=== PATIENT | male | born 1950 | race Caucasian/White ===

== ENCOUNTER 2022-09-05 16:41 | Inpatient (IN) | payer MEDICARE, SELFPAY ==
[2022-09-05] VITALS (11 sets, daily range): BP systolic 138–183; BP diastolic 62–91; PULSE 86–92; RESP 14–20; TEMP 36.8; O2SAT 94–100
--- NOTE | ~2022-09-05 | US_ITS ---
EXAMINATION:US venous doppler LE BI INDICATION:DVT. TECHNIQUE: Multiple grayscale, color flow and Doppler images of the bilateral lower extremity deep ve nous systems were obtained and reviewed. COMPARISON:No prior studies for comparison. FINDINGS: The common femoral, superficial femoral and popliteal veins demonstrate normal respiratory variation, augmentation and compressibility. Color flow is also seen within the posterior tibial, pe roneal, greater saphenous and profunda veins. There is a complicated partially cystic structure in th e right popliteal fossa, possibly a complicated Zhang's cyst measuring 3.5 cm. IMPRESSION: 1: No lower extremity deep venous thrombosis. Reviewed, dictated and finalized at location A. BUSTER
--- NOTE | ~2022-09-05 | CT_ITS ---
EXAMINATION: CTA chest PE protocol DATE: 09/09/2022 13:37 CLEANING SUPERVISOR INDICATION: Pulmonary embolism. TECHNIQUE: Computed tomographic angiography (CTA) of the chest was performed with 100 mL Omnipaque-35 0 intravenous contrast. The dose-length product was 666.96 mGy-cm. Maximum intensity projection 3D-re constructions of the aorta and other arteries were constructed by the technologist on a separate work station. Automated exposure control and iterative reconstruction technique were employed. COMPARISON: None. FINDINGS: Study is technically adequate without evidence for pulmonary embolism. Small pleural effusi ons. Cardiomegaly. There is dependent atelectasis. No endobronchial lesions. No pneumothorax. No thor acic lymphadenopathy. There is a solid-appearing 1.4 cm soft tissue nodule anterior chest wall, image 91. There is splenomegaly. No other hepatic masses are seen. No pneumothorax. No focal airspace cons olidation. There is severe thoracic and upper lumbar spondylosis. IMPRESSION: 1. No evidence for pulmonary embolism. No focal pneumonia. 2: Small pleural effusions with compressive atelectasis of the lung bases. 3: Solid 1.4 cm soft tissue nodule anterior chest wall. Consider percutaneous biopsy. 4: Splenomegaly. Reviewed, dictated and finalized at location A. NING SUPERVISOR IMPRESSION: 1. No evidence for pulmonary embolism. No focal pneumonia. 2: Small pleural effusions with compressive atelectasis of the lung bases. 3: Solid 1.4 cm soft tissue nodule anterior chest wall. Consider percutaneous b iopsy. 4: Splenomegaly.
--- NOTE | ~2022-09-05 | XR_ITS ---
XR surgery orthopedic DATE: 09/06/2022 18:21 INDICATION: ORIF right subcapital femoral neck fracture TECHNIQUE: 3 spot C-arm images of the right hip 74.5 seconds fluoroscopy time 28.94 mGy COMPARISON: 09/05/2022 right hip 09/05/2022 CT pelvis FINDINGS: There are 3 lag screws extending through the intertrochanteric area into the right femoral head, traversing the right subcapital femoral neck fracture, with no significant displacement or angu lation. IMPRESSION: ORIF right subcapital femoral neck fracture Reviewed, dictated and finalized at Location A. Reviewed, dictated and finalized at location B. CAGE ASSEMBLER
--- NOTE | ~2022-09-05 | XR_ITS ---
EXAM: XR hip RT min 3V w AP pelvis DATE: 09/05/2022 19:10 HISTORY: FALL TODAY. RIGHT LATERAL HIP PAIN . COMPARISON: None available. FINDINGS: Decreased mineralization. Irregular lucencies in the right femoral head/neck junction. Sub tle possible cortical irregularity along the posterior cortex of the right femoral neck in the frog-l eg view and along the anterior cortex of the right femoral neck in the lateral view. No lytic or lew tic lesion. Bilateral hip osteoarthritis. Severe degenerative change in the lower lumbar spine. No er osion or periosteal change. Vascular calcifications. IMPRESSION: Possible subcapital right femoral neck fracture. Consider pelvic CT for further evaluatio n. Reviewed, dictated and finalized at location K. NSE CLERK IMPRESSION: Possible subcapital right femoral neck fracture. Consider pelvic CT for further evaluation.
--- NOTE | ~2022-09-05 | CT_ITS ---
EXAMINATION: CT pelvis wo con DATE: 09/05/2022 20:43 INDICATION: Fall. Possible right subcapital femoral neck fracture. TECHNIQUE: Computed tomography (CT) of the pelvis was performed without intravenous contrast. Automat ed exposure control and iterative reconstruction technique were employed. The dose-length product was 527.97 mGy-cm. COMPARISON: XR hip, same date. FINDINGS: Atherosclerotic calcifications. Normal appendix. Ectopic insertion of the right ureter, whi ch is mildly dilated. Diverticulosis without diverticulitis. Uncomplicated fat-containing bilateral i nguinal hernias, larger on the left. Degenerative change in the lumbar spine. Nondisplaced right subc apital femoral neck fracture. IMPRESSION: Nondisplaced right subcapital femoral neck fracture. Reviewed, dictated and finalized at location K. WARE TEST DEVELOPER
--- NOTE | 2022-09-05 19:47 | ECG_ITS ---
Measurements Intervals [place] Rate: 88 P: 68 NE: 155 QRS: -20 QRSD: 92 T: 56 QT: 354 QTc: 429 Interpretive Statements SINUS RHYTHM DELAYED PRECORDIAL R/S TRANSITION CONSIDER INFERIOR INFARCT, AGE INDETERMINATE ABNORMAL ECG NO PREVIOUS ECG AVAILABLE FOR COMPARISON Electronically Signed On 09-05-2022 22:58:25 [employer] INSTRUCTOR by Gentry Cummings D.O.
--- NOTE | 2022-09-05 20:36 | ED.FALL ---
HPI - Fall General Chief Complaint: Fall Stated Complaint: fall Time Seen by Provider: 09/05/22 19:42 History of Present Illness HPI Narrative: 72-year-old male history of hyperlipidemia, diabetes, GERD and lymphoma presents to the emergency room for evaluation of right hip pain following a fall. Patient states that he was walking around the dark stumbled and fell landing on his right hip. Patient states that he was not ambulatory following the injury. Attempted to ambulate and sit down on the toilet in the bathroom and was unable to due to the pain. Related Data Allergies Allergy/AdvReac Type Severity Reaction Status Date / Time amoxicillin Allergy Unknown Verified 11/25/14 13:41 Penicillins Allergy Unknown Verified 10/23/16 14:05 Review of Systems Review of Systems: CONSTITUTIONAL: Denies fever, chills, or sweats. EYES: Denies visual changes, redness, or discharge. ENT: Denies rhinorrhea, congestion, sore throat, or otalgia. CARDIOVASCULAR: Denies chest pain, palpitations, or edema. RESPIRATORY: Denies cough or dyspnea. GASTROINTESTINAL: Denies abdominal pain, nausea, vomiting, or diarrhea. GENITOURINARY: Denies dysuria or hematuria. SKIN: Denies rash or itching. MUSCULOSKELETAL: Reports right hip pain NEUROLOGIC: Denies headache, numbness, dizziness, or weakness. PSYCHIATRIC: Denies anxiety or depression. [facility] Family History Family History Father Family history of congenital heart disease Sibling Family history of malignant neoplasm of cervix Grandparent Diabetes mellitus Social History Social History Smoking status: Never smoker Alcohol intake: current Exam Narrative: GENERAL: Well-appearing, well-nourished, no physical limitations, and in no acute distress. HEAD: Normocephalic, atraumatic. EYES: Conjunctivae normal, PERRLA and EOMI. CHEST: Clear to auscultation. No respiratory distress. No wheezes rales or rhonchi. HEART: Regular rate and rhythm. No murmur heard. Normal peripheral pulses. EXTREMITIES: RLE: Tenderness over the greater trochanter extending into the upper medial thigh. Shortened and rotated. Distal pulses are present SKIN: Warm, dry, no rash. No noted wounds NEURO: No focal deficits. Alert and oriented x3. MAEW. CN's II-XI intact bilaterally PSYCH: Cooperative. Normal mood and affect. Course Course Emergency Course: 1999: Consulted with MD Lazar. He will consult with the patient Vital Signs Vital signs: Vital Signs Temperature 36.8 C 09/05/22 16:49 Pulse Rate 90 09/05/22 16:49 Respiratory Rate 18 09/05/22 16:49 Blood Pressure 183/91 H 09/05/22 16:49 Pulse Oximetry 97 09/05/22 16:49 Temperature 36.8 C 09/05/22 20:31 Pulse Rate 92 09/05/22 20:31 Respiratory Rate 14 09/05/22 20:31 Blood Pressure 158/75 H 09/05/22 20:31 Pulse Oximetry 95 09/05/22 20:31 MDM - Fall Lab Data Result diagrams: 09/05/22 20:55 09/05/22 20:55 Labs: Lab Results 09/05/22 09/05/22 09/05/22 Range/Units 20:33 20:55 20:55 WBC RBC Hgb Hct MCV MCH MCHC RDW Plt Count MPV Immature Gran % (Auto) Neut % (Auto) Lymph % (Auto) [place] % (Auto) Eos % (Auto) Baso % (Auto) Lymph # (Auto) [place] # (Auto) Eos # (Auto) Baso # (Auto) Abs Immat Gran (auto) Absolute Neuts (auto) Absolute Nucleated RBC Nucleated RBC % PT Pending INR Pending APTT Pending Sodium Pending Potassium Pending Chloride Pending Carbon Dioxide Pending Anion Gap Pending BUN Pending Creatinine Pending Estim Creat Clear Calc Pending Estimated GFR Pending Glucose Pending Calcium Pending Total Bilirubin Pending AST Pending ALT Pending Alkaline P
[2022-09-05 20:41] LABS: Appearance Urine Clear (Clear); Bilirubin Urine Negative (Negative); Blood Urine 1+ (Negative); Color Urine Yellow (Yellow); Glucose Urine UA 3+ mg/dL (Negative); Ketones Urine Trace mg/dL (Negative); Leukocyte Esterase Ur Negative LEU/UL (Negative); Nitrate Urine Negative (Negative); Protein Urine Negative (Negative); Urobilinogen Urine 0.2 mg/dL (<2.0)
[2022-09-05 20:50] LABS: RBC Urine 0-2 /hpf (0-2)
[2022-09-05 20:53] LABS: Add Urine Microscopic? YES
[2022-09-05 21:02] LABS: Basophils Percent Auto 0.1 % (0.2-1.2); Eosinophils Percent Auto 0.6 % (0-4.4); Hematocrit 36.2 % (42.0-52.0); Hemoglobin 12.2 g/dL (14.0-18.0); Immature Granulocyte Absolute 0.02 K/mm3 (0.00-0.031); Immature Granulocyte Percent A 0.3 % (0-0.5); Immature Platelet Fraction Pct 2.2 % (0.9-11.2); Lymphocytes Absolute Auto 0.55 K/mm3 (0.9-3.2); Lymphocytes Percent Auto 8.2 % (18.3-44.2); Mean Corpuscular HGB Conc 33.7 g/dl (32-36); Mean Corpuscular Hemoglobin 34.1 pg (26-34); Mean Corpuscular Volume 101.1 fl (80-100); Mean Platelet Volume 9.5 fl (7.4-10.4); Monocytes Absolute Auto 0.3 K/mm3 (0.1-0.6); Monocytes Percent Auto 4.3 % (2.6-8.5); Neutrophils Absolute Auto 5.8 K/mm3 (1.3-6.7); Neutrophils Percent Auto 86.5 % (45.5-73.1); Platelet Count Result 112 k/mm3 (150-375); Red Blood Count 3.58 M/mm3 (4.6-6.20); Red Cell Distribution Width 14.9 % (11.5-14.5); White Blood Count 6.7 K/mm3 (4.5-10.0)
[2022-09-05 21:12] LABS: Alanine Aminotransferase 46 U/L (6-50); Albumin Level 4.7 g/dL (3.5-5.1); Alkaline Phosphatase 108 U/L (38-126); Anion Gap 11 mmol/L (8-16); Aspartate Amino Transferase 39 U/L (17-59); Bilirubin,Total 0.8 mg/dL (0.2-1.3); Blood Urea Nitrogen 24 mg/dL (9-20); Carbon Dioxide 25 mmol/L (22-30); Chloride 105 mmol/L (98-107); Estimated Glomerular Filt Rate > 60; Glucose 336 mg/dL (65-110); Potassium 4.4 mmol/L (3.4-5.0); Sodium 141 mmol/L (137-145)
[2022-09-05 21:14] LABS: Prothrombin Time 13.2 Seconds (11.1-14.7)
[2022-09-05 21:15] LABS: Partial Thromboplastin Time 22.9 SECONDS (22.3-36.8)
[2022-09-05] MEDS: SODIUM CHLORIDE 0.9% IV 1,000 ML 125 ML IV CONT (21:41)
--- NOTE | 2022-09-05 22:25 | PM.IMHP ---
H&P: HPI History of Present Illness Date/Time: 09/05/22 22:25 Chief Complaint: fall Narrative: this is a 72-year-old male with past medical history significant for type diabetes mellitus, dyslipidemia, GERD, gout. Patient suffered a mechanical fall was able to get back up on his own however had significant pain and difficulty ambulating when the running errands until finally going home when pain was unbearable decided to call EMS and come to the hospital for x-ray . patient denies any loss of consciousness he has been his usual state of health up until this point. In emergency room a urinalysis shows some WBCs present in the urine, hip x-ray was significant for: IMPRESSION: Possible subcapital right femoral neck fracture. Consider pelvic CT for further evaluation. Review of Systems Review of Systems: fall, pain upon weight-bearing on right leg Constitutional: Constitutional: Denies chills, Denies fatigue, Denies fever(s), Denies frequent falls, Denies lethargy, Denies malaise, Denies night sweats and Denies weakness Eyes: Eyes: Denies change in vision ENT: Denies dysphagia, Denies vertigo, Denies dizziness and Denies odynophagia Cardiovascular: Cardiovascular: Denies chest pain, Denies leg edema, Denies lightheadedness, Denies palpitations and Denies dyspnea on exertion Respiratory: Respiratory: Denies chest congestion, Denies cough, Denies excessive phlegm production, Denies pain on inspiration, Denies dyspnea and Denies wheezing Gastrointestinal: Gastrointestinal: Denies abdominal pain, Denies dyspepsia, Denies heartburn, Denies diarrhea, Denies nausea and Denies vomiting Genitourinary: Genitourinary: Denies dysuria Musculoskeletal: Musculoskeletal: Reports limited range of motion ( right hip) Integumentary/Breasts: Skin/Breast: Denies rash Neurologic: Denies vertigo, Denies dizziness, Denies focal weakness and Denies Sensory deficit (Neuro) Psychiatric: Psychiatric: Reports no additional psychiatric complaints and Reports as per HPI Endocrine: Endocrine: Denies cold intolerance, Denies flushing, Denies heat intolerance, Denies polyphagia, Denies polydipsia and Denies palpitations Hematologic/Lymphatic: Hematologic/Lymphatic: Reports no additional hematologic/lymphatic complaints and Reports as per HPI Allergic/Immunologic: Allergic/Immunologic: Reports no additional allergic/immunologic complaints and Reports as per HPI PMFSH Past Medical History Medical History (Updated 09/06/22 @ 08:17 by Eddie Galvin MD) Asthma COPD (chronic obstructive pulmonary disease) DVT (deep venous thrombosis) HTN (hypertension) Hyperlipidemia Lymphoma Obesity Osteoarthritis T2DM (type 2 diabetes mellitus) Family History Family History (Updated 09/06/22 @ 00:30 by Cyndi Junior, RN) Father Family history of congenital heart disease Sibling Family history of malignant neoplasm of cervix Diabetes mellitus Grandparent Diabetes mellitus Social History Social History Smoking packs per day: 1 Smoking cigarettes per day: 20.0 Years smoked: 55 Smoking pack-years: 55.00 Smoking status: Former smoker Tobacco type: cigarettes and e-cigarettes/vaping Alcohol intake: never Substance use type: does not use Lack of Transportation: No Lack of Food: Never True Current Housing: I Have Housing Concerned About Future Housing: No Difficulty Paying Gas/Electric Bills: No Difficulty Paying for Meds: No Currently Unemployed: No Education: High School Diploma/GED Difficulty w/ Childcare or Family Care: No Spiritual care concerns: No Meds Home Medications and Allergies Home Medications Medication Instructions Recorded Confirmed Type allopurinol 100 mg tablet 200 mg PO DAILY 09/06/22 09/06/22 History cholecalciferol (vitamin D3) 1 cap PO DAILY 09/06/22 09/06/22 History cyanocobalamin (vitamin B-12) 1,000 mcg PO DAILY
[2022-09-05 22:34] LABS: SARS-CoV-2 RNA PCR Negative
[2022-09-05] MEDS: ONDANSETRON INJ 4 MG/2 ML VIAL IV PUSH (22:57)
[2022-09-05] MEDS: HYDROmorphone HCL INJ (*CRX) 1 MG/ML SYR 0.5 MG IV PUSH (22:58)
--- NOTE | 2022-09-05 23:35 | ADMGEN ---
This patient, Monty Granados, was admitted to [facility] Surg Room 328-01. Patient/family oriented to hospital policies and general routines including ID bracelet, bed and alarms, visiting hours, pain management, procedures, bathroom and other care routines, personal items, smoking policy, room service/diet, and visiting hours. Information on how to activate the Rapid Response Team has been discussed. Patient/Family are encouraged to report perceived risks to care and to ask questions if they do not understand what they are told or what they should do.
[2022-09-06] VITALS (14 sets, daily range): BP systolic 100–137; BP diastolic 50–81; PULSE 83–129; RESP 10–20; TEMP 36.4–37.6; O2SAT 94–100; BMI 31.4
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
[2022-09-06 07:18] LABS: Hemoglobin A1C 8.1 % (<5.7)
[2022-09-06 07:46] LABS: Vitamin D 25 Hydroxy 39.6 ng/mL
--- NOTE | 2022-09-06 08:10 | WPDANESEPPF ---
Anes - Initial Pre Proc Eval Procedure: Operation Date: 09/06/22 16:30 Proposed Procedures p Cannulated Screw Fixation Right Hip, Possible Bipolar Hemiarthroplasty Right Hip - Matt Lazar MD Date/Time: 09/06/22 08:10 Surgeon: Gómez Rojas MD Pre Op Diagnosis: right hip fracture Patient Data Age: 72 Gender: M Height: 1.7 m Weight: 91 kg Last Vital Signs Temp 37.1 C 09/06/22 05:54 Pulse 83 09/06/22 05:54 Resp 14 09/06/22 05:54 BP 131/60 09/06/22 05:54 Pulse Ox 98 09/06/22 05:54 O2 Del Method Room Air 09/06/22 01:14 Allergies Allergy/AdvReac Type Severity Reaction Status Date / Time amoxicillin Allergy Unknown Loss of Verified 09/06/22 00:51 Consciousness Penicillins Allergy Unknown Other Verified 09/06/22 00:51 Home Medications Medication Instructions Recorded Confirmed Type allopurinol 100 mg tablet 200 mg PO DAILY 09/06/22 09/06/22 History cholecalciferol (vitamin D3) 1 cap PO DAILY 09/06/22 09/06/22 History cyanocobalamin (vitamin B-12) 1,000 mcg PO DAILY 09/06/22 09/06/22 History 1,000 mcg tablet dapagliflozin 10 mg tablet 10 mg PO DAILY 09/06/22 09/06/22 History (Farxiga) folic acid 1 mg tablet 1 mg PO DAILY 09/06/22 09/06/22 History gabapentin 300 mg capsule 1,200 mg PO DAILY 09/06/22 09/06/22 History metformin 500 mg tablet,extended 2,000 mg PO DAILY 09/06/22 09/06/22 History release 24 hr omega-3 fatty acids-vitamin E 2 cap PO BID 09/06/22 09/06/22 History 1,000 mg capsule omeprazole 40 mg capsule,delayed 40 mg PO DAILY 09/06/22 09/06/22 History release rosuvastatin 10 mg tablet 10 mg PO DAILY 09/06/22 09/06/22 History Laboratory Tests 09/05/22 09/05/22 09/05/22 20:33 20:55 20:55 WBC RBC Hgb Hct MCV MCH MCHC RDW Plt Count MPV Immature Gran % (Auto) Neut % (Auto) Lymph % (Auto) [place] % (Auto) Eos % (Auto) Baso % (Auto) Lymph # (Auto) [place] # (Auto) Eos # (Auto) Baso # (Auto) Abs Immat Gran (auto) Absolute Neuts (auto) Absolute Nucleated RBC Nucleated RBC % % Immature Plt Fraction PT 13.2 Seconds Seconds (11.1-14.7) INR 1.0 APTT 22.9 SECONDS SECONDS (22.3-36.8) Sodium 141 mmol/L mmol/L (137-145) Potassium 4.4 mmol/L mmol/L (3.4-5.0) Chloride 105 mmol/L mmol/L (98-107) Carbon Dioxide 25 mmol/L mmol/L (22-30) Anion Gap 11 mmol/L mmol/L (8-16) BUN 24 mg/dL H mg/dL (9-20) Creatinine 0.80 mg/dL mg/dL (0.7-1.3) Estim Creat Clear Calc Not Reportable Estimated GFR > 60 (59 - ) Glucose 336 mg/dL H mg/dL (65-110) Hemoglobin A1c Calcium 9.0 mg/dL mg/dL (8.4-10.2) Total Bilirubin 0.8 mg/dL mg/dL (0.2-1.3) AST 39 U/L U/L (17-59) ALT 46 U/L U/L (6-50) Alkaline Phosphatase 108 U/L U/L (38-126) Total Protein 8.0 g/dL g/dL (6.3-8.2) Albumin 4.7 g/dL g/dL (3.5-5.1) Vitamin D 25-Hydroxy Urine Color Yellow (Yellow) Urine Appearance Clear (Clear) Urine pH 6.0 (5.0-9.0) Ur Specific [place] 1.010 (1.001-1.035) Urine Protein Negative mg/dL mg/dL (Negative) Urine Glucose (UA) 3+ mg/dL H mg/dL (Negative) Urine Ketones Trace mg/dL mg/dL (Negative) Ur Blood (Man) 1+ H (Negative) Urine Nitrate Negative (Negative) Urine Bilirubin Negative (Negative) Urine Urobilinogen 0.2 mg/dL mg/dL (<2.0) Leukocyte Esterase Rfl Negative MAURICE/UL MAURICE/UL (Negative) Ur
[2022-09-06] MEDS: SODIUM CHLORIDE 0.9% IV 1,000 ML 125 ML IV CONT ×2 (08:19→20:04)
[2022-09-06] MEDS: GABAPENTIN 400 MG CAPSULE 1200 MG PO (08:21)
[2022-09-06] MEDS: PANTOPRAZOLE 40 MG TABLET PO ×2 (08:21→20:04)
[2022-09-06] MEDS: allopurinoL 100 MG TABLET 200 MG PO (08:21)
[2022-09-06 08:40] LABS: Basophils Percent Auto 0.2 % (0.2-1.2); Eosinophils Absolute Auto 0.2 K/mm3 (0-0.3); Eosinophils Percent Auto 2.7 % (0-4.4); Hematocrit 34.1 % (42.0-52.0); Hemoglobin 11.5 g/dL (14.0-18.0); Immature Granulocyte Absolute 0.02 K/mm3 (0.00-0.031); Immature Granulocyte Percent A 0.3 % (0-0.5); Immature Platelet Fraction Pct 2.3 % (0.9-11.2); Lymphocytes Absolute Auto 0.76 K/mm3 (0.9-3.2); Lymphocytes Percent Auto 12.9 % (18.3-44.2); Mean Corpuscular HGB Conc 33.7 g/dl (32-36); Mean Corpuscular Hemoglobin 34.7 pg (26-34); Mean Platelet Volume 9.5 fl (7.4-10.4); Monocytes Absolute Auto 0.4 K/mm3 (0.1-0.6); Monocytes Percent Auto 5.9 % (2.6-8.5); Neutrophils Absolute Auto 4.6 K/mm3 (1.3-6.7); Platelet Count Result 104 k/mm3 (150-375); Red Blood Count 3.31 M/mm3 (4.6-6.20); Red Cell Distribution Width 15.3 % (11.5-14.5); White Blood Count 5.9 K/mm3 (4.5-10.0)
[2022-09-06 08:41] LABS: Glucose Point of Care 268 mg/dl (65-105)
[2022-09-06] MEDS: INSULIN ASPART (*BKC) 100 UNITS/ML SUB-Q ×2 (10:05→11:53)
--- NOTE | 2022-09-06 11:20 | PM.IMPN ---
Progress Note: A&P Assessment and Plan (1) Closed hip fracture: Code(s): S72.009A - Fracture of unspecified part of neck of unspecified femur, initial encounter for closed fracture Status: Acute Assessment and Plan: OR planned for this afternoon (2) T2DM (type 2 diabetes mellitus): Code(s): E11.9 - Type 2 diabetes mellitus without complications Status: Acute Assessment and Plan: accuchecks, SSI, monitor BG, a1c is 8.1 (3) UTI (urinary tract infection): Code(s): N39.0 - Urinary tract infection, site not specified Status: Acute Assessment and Plan: urine culture pending, currently off all abx Plan DVT prophylaxis with SCDs GI prophylaxis not indicated Code status full code Subjective Date/time seen: 09/06/22 11:20 Interval history: No overnight events noted. No chest pain or shortness of breath. No nausea, vomiting or diarrhea. No fevers or chills. Pain control rest, worse with movement. Eager to go the OR, very thirsty. Review of Systems Review of Systems: 12 point review of systems was assessed and was negative except as noted in the HPI Exam Narrative: General: No acute distress, alert and oriented per baseline HEENT: Atraumatic, normocephalic, mucous membranes moist CV: Regular rate and rhythm, S1, S2 Lungs: Clear to auscultation bilaterally, no rales or crackles noted, no wheezes, good air entry Abdomen: Soft, nontender, nondistended Extremities: Normal to inspection Skin: No rashes noted, no lesions or wounds seen Psych: Euthymic, normal affect Objective Data Vital Signs Vital Signs: Vital Signs - 24 hr 09/05/22 16:49 09/05/22 19:42 09/05/22 19:45 Temperature 98.3 F Pulse Rate 90 89 88 Respiratory Rate 18 15 Blood Pressure 183/91 H Pulse Oximetry 97 98 Oxygen Delivery 09/05/22 20:00 09/05/22 20:05 09/05/22 20:07 Temperature Pulse Rate 87 90 91 Respiratory Rate 16 18 20 Blood Pressure 145/71 H Pulse Oximetry 98 96 95 Oxygen Delivery 09/05/22 20:15 09/05/22 20:16 09/05/22 20:31 Temperature 98.3 F Pulse Rate 90 91 92 Respiratory Rate 15 16 14 Blood Pressure 156/62 H 158/75 H Pulse Oximetry 94 94 95 Oxygen Delivery 09/05/22 21:30 09/05/22 22:30 09/06/22 01:14 Temperature 98.3 F 98.3 F Pulse Rate 89 86 86 Respiratory Rate 16 16 16 Blood Pressure 142/70 H 138/80 Pulse Oximetry 97 100 100 Oxygen Delivery Room Air 09/06/22 05:54 09/06/22 08:00 Temperature 98.7 F Pulse Rate 83 Respiratory Rate 14 Blood Pressure 131/60 Pulse Oximetry 98 Oxygen Delivery Room Air Intake/Output Intake/Output: Intake & Output 09/03/22 09/04/22 09/05/22 09/06/22 23:59 23:59 23:59 23:59 Intake Total 1500 Output Total 900 Balance 600 Meds/Results Medications: Active Medications Generic Name Dose Route Start Last Admin Trade Name Freq PRN Reason Stop Dose Admin Allopurinol 200 mg 09/06/22 08:00 09/06/22 08:21 Allopurinol 100 Mg Tablet PO 200 mg DAILY@0800 LUZ Administration Fentanyl Citrate 25 mcg 09/06/22 08:08 Fentanyl Citrate Inj (*Crx) 100 Mcg/2 Ml Vial IV PUSH Q2M PRN Pain Gabapentin 1,200 mg 09/06/22 09:00 09/06/22 08:21 Gabapentin 400 Mg Capsule PO 1,200 mg DAILY LUZ Administration Hydromorphone HCl 0.5 mg 09/05/22 21:12 09/05/22 22:58 Hydromorphone Hcl Inj (*Crx) 1 Mg/Ml Syr IV PUSH 0.5 mg Q4H PRN Administration Pain Rated 7-10 Sodium Chloride 1,000 mls @ 125 mls/hr 09/05/22 21:15 09/06/22 08:19 Normal Saline Iv IV CONT 125 mls/hr .Q8H LUZ Administration Lactated Ringer's 1,000 mls @ 30 mls/hr 09/06/22 08:10 Lr - Lactated Ringers Iv IV CONT .Q24H LUZ Lactated Ringer's 1,000 mls @ 30 mls/hr 09/06/22 08:10 Lr - Lactated Ringers Iv IV CONT .Q24H LUZ Insulin Aspart 5 units 09/06/22 08:00 09/06/22 10:05 Insulin Aspart (*Bkc) 100 Units/Ml 0.05 units/kg (5 units
[2022-09-06 11:50] LABS: Glucose Point of Care 244 mg/dl (65-105)
--- NOTE | 2022-09-06 15:37 | WPDANESEPPF ---
Anes - Initial Pre Proc Eval Procedure: Operation Date: 09/06/22 16:30 Proposed Procedures p Cannulated Screw Fixation Right Hip, Possible Bipolar Hemiarthroplasty Right Hip - Matt Lazar MD Date/Time: 09/06/22 15:37 Surgeon: Gómez Rojas MD Pre Op Diagnosis: right hip fracture Patient Data Age: 72 Gender: M Height: 1.7 m Weight: 91 kg Last Vital Signs Temp 36.6 C 09/06/22 14:00 Pulse 119 H 09/06/22 14:00 Resp 20 09/06/22 14:00 BP 103/81 09/06/22 14:00 Pulse Ox 96 09/06/22 14:00 O2 Del Method Room Air 09/06/22 08:00 Allergies Allergy/AdvReac Type Severity Reaction Status Date / Time amoxicillin Allergy Unknown Loss of Verified 09/06/22 00:51 Consciousness Penicillins Allergy Unknown Other Verified 09/06/22 00:51 Home Medications Medication Instructions Recorded Confirmed Type allopurinol 100 mg tablet 200 mg PO DAILY 09/06/22 09/06/22 History cholecalciferol (vitamin D3) 1 cap PO DAILY 09/06/22 09/06/22 History cyanocobalamin (vitamin B-12) 1,000 mcg PO DAILY 09/06/22 09/06/22 History 1,000 mcg tablet dapagliflozin 10 mg tablet 10 mg PO DAILY 09/06/22 09/06/22 History (Farxiga) folic acid 1 mg tablet 1 mg PO DAILY 09/06/22 09/06/22 History gabapentin 300 mg capsule 1,200 mg PO DAILY 09/06/22 09/06/22 History metformin 500 mg tablet,extended 2,000 mg PO DAILY 09/06/22 09/06/22 History release 24 hr omega-3 fatty acids-vitamin E 2 cap PO BID 09/06/22 09/06/22 History 1,000 mg capsule omeprazole 40 mg capsule,delayed 40 mg PO DAILY 09/06/22 09/06/22 History release rosuvastatin 10 mg tablet 10 mg PO DAILY 09/06/22 09/06/22 History Laboratory Tests 09/05/22 09/05/22 09/05/22 20:33 20:55 20:55 WBC RBC Hgb Hct MCV MCH MCHC RDW Plt Count MPV Immature Gran % (Auto) Neut % (Auto) Lymph % (Auto) [place] % (Auto) Eos % (Auto) Baso % (Auto) Lymph # (Auto) [place] # (Auto) Eos # (Auto) Baso # (Auto) Abs Immat Gran (auto) Absolute Neuts (auto) Absolute Nucleated RBC Nucleated RBC % % Immature Plt Fraction PT 13.2 Seconds Seconds (11.1-14.7) INR 1.0 APTT 22.9 SECONDS SECONDS (22.3-36.8) Sodium 141 mmol/L mmol/L (137-145) Potassium 4.4 mmol/L mmol/L (3.4-5.0) Chloride 105 mmol/L mmol/L (98-107) Carbon Dioxide 25 mmol/L mmol/L (22-30) Anion Gap 11 mmol/L mmol/L (8-16) BUN 24 mg/dL H mg/dL (9-20) Creatinine 0.80 mg/dL mg/dL (0.7-1.3) Estim Creat Clear Calc Not Reportable Estimated GFR > 60 (59 - ) Glucose 336 mg/dL H mg/dL (65-110) POC Capillary Glucose Hemoglobin A1c Calcium 9.0 mg/dL mg/dL (8.4-10.2) Total Bilirubin 0.8 mg/dL mg/dL (0.2-1.3) AST 39 U/L U/L (17-59) ALT 46 U/L U/L (6-50) Alkaline Phosphatase 108 U/L U/L (38-126) Total Protein 8.0 g/dL g/dL (6.3-8.2) Albumin 4.7 g/dL g/dL (3.5-5.1) Vitamin D 25-Hydroxy Urine Color Yellow (Yellow) Urine Appearance Clear (Clear) Urine pH 6.0 (5.0-9.0) Ur Specific [place] 1.010 (1.001-1.035) Urine Protein Negative mg/dL mg/dL (Negative) Urine Glucose (UA) 3+ mg/dL H mg/dL (Negative) Urine Ketones Trace mg/dL mg/dL (Negative) Ur Blood (Man) 1+ H (Negative) Urine Nitrate Negative (Negative) Urine Bilirubin Negative (Negative) Urine Urobilinogen 0.2 mg/dL mg/dL (<2.0) Leukocyte Esterase Rfl Negative LE
[2022-09-06] MEDS: LACTATED RINGERS 1,000 ML 30 ML IV CONT ×2 (15:50→18:28)
[2022-09-06 16:06] LABS: Glucose Point of Care 197 mg/dl (65-105)
--- NOTE | 2022-09-06 16:18 | WPDHPUPDATE1 ---
History and Physical Update Update Date/Time: 09/06/22 16:18 History and Physical has been reviewed, including an updated exam of the patient. There are NO changes in the patient's condition. Risks, benefits, and alternatives have been discussed and questions answered. Patient agrees to proceed with procedure.
[2022-09-06] MEDS: ceFAZolin 2 GM/D5W 50 ML 2 GM/50 ML BAG IVPB (16:50)
[2022-09-06] MEDS: BUPIVACAINE HCL 0.5% PF 30 ML VIAL INFILTRATE (17:32)
[2022-09-06] MEDS: ceFAZolin SODIUM 1 GM VIAL IRRIGATION (17:57)
--- NOTE | 2022-09-06 18:17 | SUR.OPER ---
150mL clear yellow urine drained from stephenson at the end of the case
--- NOTE | 2022-09-06 18:38 | P.OP_ITS ---
Procedure Note - Detailed Date of Procedure 09/06/22 Pre-op Diagnosis right subcapital femoral neck fracture minimally impacted Post-op Diagnosis Same Procedure Performed Screw fixation insight 2 right subcapital femoral neck fracture Surgeon Matt Lazar MD Senior Validation Engineer Tyrese Anesthesia General Description of Procedure Patient was brought to the operating room and general anesthesia was administered. The right hip was scrubbed with the chlorhexidine cloth. He received 2 g of Ancef weight based vancomycin preoperatively. The right foot was padded placed in the traction boot the left hip placed on the leg sun with the hip flexed and abducted out of the way. Right hip was prepped and draped usual fashion with a shower curtain. Using fluoro we located the position of the incision made 1/2 inch longitudinal incision through the skin and the skin and subQ were injected with 0.5% Marcaine 7 cc for postoperative analgesia. Guidewires for the Biomet cannulated screw set were placed 1 inferiorly closed the inferior femoral neck 1 posteriorly close the posterior femoral neck and 1 anterior superiorly. When it came time to drill for the cannulated screws we realized that the Biomet set did not have cannulated drill inside and there were none to be had. Fortunately we had the Synthes 7.3 cannulated system. This uses a 5.0 cannulated drill set of a 4.8 like a Biomet but fit snugly over the guidewire which was the same size as the guidewire from the Synthes set. We drilled the lateral cortex with 3 screws and we placed the 3 screws 7.3 mm 16 mm threaded Synthes cannulated screws without difficulty the inferior screw a 90 the anterior superior a 85 and the posterior superior an 80 and the screws were brought to about 5 or 6 mm of subchondral bone in each obtained very good purchase. Anatomic alignment of the fracture was maintained with minimal valgus impaction the same as on the imaging from last night there is no change under fluoro. The wound was irrigated with antibiotic solution. The skin was closed with 2-0 subcutaneous Vicryl and glue. We did not incise the fascia but drilled through the fascia for screw placement. There were no complications he tolerated the procedure well was transferred postop recovery room stable condition. Implants Synthes 7.3 mm cannulated screws. Estimated Blood Loss -50.0 Urine Output 900 Condition Stable Disposition PACU
[2022-09-06] MEDS: ACETAMINOPHEN 500 MG TABLET 1000 MG PO (20:03)
[2022-09-06] MEDS: oxyCODONE HCL (*CRX) 5 MG TAB IR PO (20:04)
[2022-09-06 21:45] LABS: Glucose Point of Care 254 mg/dl (65-105)
[2022-09-07] VITALS (11 sets, daily range): BP systolic 101–123; BP diastolic 47–63; PULSE 76–100; RESP 16–20; TEMP 36.1–37.2; O2SAT 92–100
--- NOTE | 2022-09-07 | ECHO_ITS ---
Patient Info Name: Monty Granados Age: 72 years : 1950 Gender: Male Ht: 67 in Wt: 200 lbs BSA: 2.10 m2 HR: 93 bpm BP: 123 / 59 mmHg Heart Rhythm: Sinus Rhythm Technical Quality: Poor Exam Date: 09/07/2022 1:32 PM Exam Location: [facility] Exam Room: [facility] Patient Status: Inpatient Admit Date: 09/05/2022 Staff Ordering Physician: Isidoro Bauer MD Concrete Boom Operator: Angelita Barrett RCS Attending Provider: Gómez Rojas MD Referring Physician: Juancarlos ELKINS; Exam Type: CA echo dop color flow w con Study Info Indications - ATRIAL FIBRLLIATION S/P OP Complete two-dimensional, color flow and Doppler transthoracic echocardiogram is performed with contrast to opacify the left ventricle and to improve the deliniation of the left ventricle endocardial borders. Contrast/Agitated Saline Contrast/Ag. Saline: Definity Amount: 2.00 ml Administered By: Angelita Barrett Existing IV Access: Yes IV Access Condition: patent with no signs of infiltration Reason for Poor Study: patient body habitus Summary 1. Left ventricular systolic function is normal, estimated at 60-65%. 2. Right ventricular systolic function is normal. 3. There is mild aortic valve calcification. 4. There is mild tricuspid valve regurgitation. Left Ventricle Left ventricular chamber dimension is normal. Left ventricular systolic function is normal, estimated at 60-65%. There is no increased left ventricular wall thickness. Right Ventricle Right ventricular chamber dimension is normal. Right ventricular systolic function is normal. Left Atria Left atrial chamber dimension is normal. Right Atria Right atrial chamber dimension is normal. Atrial Septum Intact interatrial septum visualized by color flow imaging. Aortic Valve The aortic valve is not well visualized. There is no aortic valve stenosis. There is no aortic valve regurgitation. There is mild aortic valve calcification. Pulmonic Valve The pulmonic valve is not well visualized. Mitral Valve The mitral valve has normal leaflets. There is no mitral valve stenosis. There is no mitral valve regurgitation. Tricuspid Valve There is mild tricuspid valve regurgitation. Pericardium/Pleural There is trivial pericardial effusion. Inferior Vena Cava Dilated inferior vena cava with >50% collapse upon inspiration consistent with elevated right atrial pressure. Aorta The aortic root size at the sinus of Valsalva is not well visualized. Left Ventricular Outflow Tract Name Value Normal LVOT 2D LVOT Diameter 2.09 cm LVOT Doppler LVOT Peak Gradient 0 mmHg LVOT Mean Gradient 3 mmHg LVOT VTI 25.22 cm LVOT VTI/AV VTI Ratio 0.88 LVOT Stroke Volume 86.22 ml LVOT CO 17.43 l/min LVOT CI 8.30 L/min/m2 Pulmonic Valve
--- NOTE | 2022-09-07 00:28 | ECG_ITS ---
Measurements Intervals [place] Rate: 132 P: IN: 0 QRS: -56 QRSD: 96 T: 53 QT: 307 QTc: 455 Interpretive Statements ATRIAL FIBRILLATION WITH RAPID VENTRICULAR RESPONSE PATTERN CONSISTENT WITH PULMONARY DISEASE LEFT ANTERIOR FASCICULAR BLOCK [QRS AXIS <= -45, QR IN I, RS IN II] Abnormal ECG COMPARED TO ECG 09/05/2022 19:52:30 ATRIAL FIBRILLATION NOW PRESENT LEFT ANTERIOR FASCICULAR BLOCK NOW PRESENT Electronically Signed On 09-07-2022 11:16:33 AUTO SERVICER by Isidoro Bauer M.D.
[2022-09-07] MEDS: dilTIAZem HCL 30 MG TABLET PO (02:39)
[2022-09-07 06:34] LABS: Basophils Percent Auto 0.4 % (0.2-1.2); Eosinophils Absolute Auto 0.1 K/mm3 (0-0.3); Hemoglobin 9.9 g/dL (14.0-18.0); Immature Granulocyte Absolute 0.02 K/mm3 (0.00-0.031); Immature Granulocyte Percent A 0.4 % (0-0.5); Immature Platelet Fraction Pct 2.6 % (0.9-11.2); Lymphocytes Percent Auto 14.3 % (18.3-44.2); Mean Corpuscular Hemoglobin 33.4 pg (26-34); Mean Corpuscular Volume 101.4 fl (80-100); Mean Platelet Volume 9.7 fl (7.4-10.4); Monocytes Absolute Auto 0.3 K/mm3 (0.1-0.6); Monocytes Percent Auto 5.2 % (2.6-8.5); Neutrophils Absolute Auto 4.4 K/mm3 (1.3-6.7); Neutrophils Percent Auto 77.7 % (45.5-73.1); Platelet Count Result 92 k/mm3 (150-375); Red Blood Count 2.96 M/mm3 (4.6-6.20); Red Cell Distribution Width 15.2 % (11.5-14.5); White Blood Count 5.6 K/mm3 (4.5-10.0)
[2022-09-07 06:46] LABS: Anion Gap 5 mmol/L (8-16); Blood Urea Nitrogen 22 mg/dL (9-20); Calcium 7.6 mg/dL (8.4-10.2); Carbon Dioxide 24 mmol/L (22-30); Chloride 105 mmol/L (98-107); Estimated CRCL calculation 70 ml/min; Estimated Glomerular Filt Rate > 60; Glucose 349 mg/dL (65-110); Potassium 4.6 mmol/L (3.4-5.0); Sodium 134 mmol/L (137-145)
--- NOTE | 2022-09-07 07:41 | PM.PNORT ---
Subjective Subjective Date/Time Seen: 09/07/22 07:41 Postop day 1 patient is alert. Vital signs are stable. Morning labs are noted. Dressing is dry. therapy will work with the patient today on transfers. We are not going to have the patient ambulate given his neuropathy in his feet and his overall significant deconditioning. Pain is controlled. Objective Data Vital Signs Vital Signs: Vital Signs - 24 hr 09/06/22 08:00 09/06/22 14:00 09/06/22 15:29 Temperature 36.6 C 37.6 C H Pulse Rate 119 H 129 H Respiratory Rate 20 14 Blood Pressure 103/81 119/50 L Pulse Oximetry 96 94 Oxygen Delivery Room Air Room Air Oxygen Flow Rate 09/06/22 18:28 09/06/22 18:40 09/06/22 18:55 Temperature 36.7 C Pulse Rate 123 H 118 H 114 H Respiratory Rate 10 L 15 12 Blood Pressure 112/68 103/62 100/51 L Pulse Oximetry 100 100 100 Oxygen Delivery Simple Face Mask Simple Face Mask Room Air Oxygen Flow Rate 6 6 09/06/22 19:10 09/06/22 19:25 09/06/22 20:22 Temperature 36.6 C Pulse Rate 108 H 120 H 111 H Respiratory Rate 12 12 18 Blood Pressure 119/71 119/71 137/58 L Pulse Oximetry 96 97 100 Oxygen Delivery Nasal Cannula Nasal Cannula Oxygen Flow Rate 2 2 09/06/22 21:22 09/06/22 21:05 09/06/22 22:21 Temperature 36.4 C 36.4 C 36.5 C Pulse Rate 84 88 86 Respiratory Rate 20 20 20 Blood Pressure 131/63 107/68 122/67 Pulse Oximetry 100 98 98 Oxygen Delivery Oxygen Flow Rate 09/06/22 20:00 09/07/22 01:22 09/07/22 05:22 Temperature 36.7 C 36.4 C L Pulse Rate 86 87 81 Respiratory Rate 20 20 20 Blood Pressure 101/47 L 114/63 Pulse Oximetry 98 99 99 Oxygen Delivery Nasal Cannula Oxygen Flow Rate 2 09/07/22 06:41 Temperature Pulse Rate 76 Respiratory Rate Blood Pressure Pulse Oximetry Oxygen Delivery Oxygen Flow Rate Intake/Output Intake/Output: Intake & Output 09/04/22 09/05/22 09/06/22 09/07/22 23:59 23:59 23:59 23:59 Intake Total 2150 600 Output Total 1920 Balance 230 600 Meds/Results Medications: Active Medications Generic Name Dose Route Start Last Admin Trade Name Pericoq PRN Reason Stop Dose Admin Acetaminophen 1,000 mg 09/06/22 20:00 09/07/22 02:44 Acetaminophen 500 Mg Tablet PO Not Given Q6H LUZ Allopurinol 200 mg 09/06/22 08:00 09/06/22 08:21 Allopurinol 100 Mg Tablet PO 200 mg DAILY@0800 LUZ Administration Apixaban 2.5 mg 09/07/22 09:00 Apixaban 2.5 Mg Tablet PO Q12HR LUZ Cyanocobalamin 1,000 mcg 09/07/22 09:00 Cyanocobalamin 1,000 Mcg Tablet PO DAILY LUZ Folic Acid 1 mg 09/07/22 09:00 Folic Acid 1 Mg Tablet PO DAILY LUZ Gabapentin 1,200 mg 09/06/22 09:00 09/06/22 08:21 Gabapentin 400 Mg Capsule PO 1,200 mg DAILY LUZ Administration Cefazolin Sodium 1 gm in 50 mls @ 100 mls/hr 09/07/22 02:00 09/07/22 03:10 Ancef 1 Gm/D5w 50 Ml Pm IVPB 09/07/22 18:29 Infused Q8H LUZ Infusion Vancomycin HCl 1,000 mg in 250 mls @ 250 mls/hr 09/07/22 03:00 09/07/22 04:35 Vancomycin 1,000 Mg/D5w 250 Ml IVPB 09/07/22 15:59 Infused Q12H LUZ Infusion Sodium Chloride 1,000 mls @ 125 mls/hr 09/06/22 19:37 09/06/22 20:04 Normal Saline Iv IV CONT 125 mls/hr .Q8H LUZ Administration Insulin Aspart 5 units 09/06/22 08:00 09/07/22 01:17 Insulin Aspart (*Bkc) 100 Units/Ml 0.05 units/kg (5 units) Not Given SUB-Q TIDWM [facility] Miscellaneous Information 1 each 09/06/22 00:01 (Cholecalciferol (Vitamin D3) 1 Cap)Needs Strength XX 10/06/22 00:00 CL[facility]IFY [facility] Miscellaneous Information 1 each 09/06/22 00:01 Nonformulary Drug (Dapagliflozin [Farxiga] 10 Mg Tablet)Can Patient Use From Home? XX 10/06/22 00:00 CLARIFY [facility] Miscellaneous Information 1 each 09/06/22 00:01 [place] 3 With Vitamin E Needs Strength Clarified. 2 Med Combination With Only One Strength XX 10/06/22 00:00 CL[facility]IFY [facility] Morphine Sulfate 2 mg 09/06/22 19:37 [place]
[2022-09-07 08:31] LABS: Glucose Point of Care 279 mg/dl (65-105)
[2022-09-07] MEDS: INSULIN ASPART (*BKC) 100 UNITS/ML SUB-Q ×4 (08:51→22:48)
[2022-09-07] MEDS: ACETAMINOPHEN 500 MG TABLET 1000 MG PO ×3 (10:09→20:09)
[2022-09-07] MEDS: allopurinoL 100 MG TABLET 200 MG PO (10:10)
[2022-09-07] MEDS: GABAPENTIN 400 MG CAPSULE 1200 MG PO (10:11)
[2022-09-07] MEDS: FOLIC ACID 1 MG TABLET PO (10:11)
[2022-09-07] MEDS: APIXABAN 2.5 MG TABLET PO ×2 (10:11→22:11)
[2022-09-07] MEDS: SENNA/DOCUSATE SODIUM TABLET 2 TAB PO ×2 (10:11→16:11)
[2022-09-07] MEDS: ROSUVASTATIN 10 MG TABLET PO (10:12)
[2022-09-07] MEDS: PANTOPRAZOLE 40 MG TABLET PO ×2 (10:12→17:02)
[2022-09-07] MEDS: polyethylene glycoL 3350 17 GM POWD.PACK PO (10:12)
--- NOTE | 2022-09-07 10:21 | PM.IMPN ---
Progress Note: A&P Assessment and Plan (1) Closed hip fracture: Code(s): S72.009A - Fracture of unspecified part of neck of unspecified femur, initial encounter for closed fracture Status: Acute Assessment and Plan: POD #1 femoral neck fracture repair with screw fixation, doing well, pain controlled (2) T2DM (type 2 diabetes mellitus): Code(s): E11.9 - Type 2 diabetes mellitus without complications Status: Acute Assessment and Plan: accuchecks, SSI, monitor BG, a1c is 8.1 (3) UTI (urinary tract infection): Code(s): N39.0 - Urinary tract infection, site not specified Status: Ruled-out Assessment and Plan: urine culture showed mixed genital kym, no abx, no UTI noted Plan DVT prophylaxis with SCDs GI prophylaxis not indicated Code status full code Subjective Date/time seen: 09/07/22 10:21 Interval history: No overnight events noted. No chest pain or shortness of breath. No nausea, vomiting or diarrhea. No fevers or chills. Patient and discussed discharge needs of rehab vs home. Patient feels much better today than yesterday. Review of Systems Review of Systems: 12 point review of systems was assessed and was negative except as noted in the HPI Exam Narrative: General: No acute distress, alert and oriented per baseline HEENT: Atraumatic, normocephalic, mucous membranes moist CV: Regular rate and rhythm, S1, S2 Lungs: Clear to auscultation bilaterally, no rales or crackles noted, no wheezes, good air entry Abdomen: Soft, nontender, nondistended Extremities: Normal to inspection Skin: No rashes noted, no lesions or wounds seen Psych: Euthymic, normal affect Objective Data Vital Signs Vital Signs: Vital Signs - 24 hr 09/06/22 14:00 09/06/22 15:29 09/06/22 18:28 Temperature 97.9 F 99.7 F H 98.1 F Pulse Rate 119 H 129 H 123 H Respiratory Rate 20 14 10 L Blood Pressure 103/81 119/50 L 112/68 Pulse Oximetry 96 94 100 Oxygen Delivery Room Air Simple Face Mask Oxygen Flow Rate 6 09/06/22 18:40 09/06/22 18:55 09/06/22 19:10 Temperature Pulse Rate 118 H 114 H 108 H Respiratory Rate 15 12 12 Blood Pressure 103/62 100/51 L 119/71 Pulse Oximetry 100 100 96 Oxygen Delivery Simple Face Mask Room Air Nasal Cannula Oxygen Flow Rate 6 2 09/06/22 19:25 09/06/22 20:22 09/06/22 21:22 Temperature 97.8 F 97.6 F Pulse Rate 120 H 111 H 84 Respiratory Rate 12 18 20 Blood Pressure 119/71 137/58 L 131/63 Pulse Oximetry 97 100 100 Oxygen Delivery Nasal Cannula Oxygen Flow Rate 2 09/06/22 21:05 09/06/22 22:21 09/06/22 20:00 Temperature 97.6 F 97.7 F Pulse Rate 88 86 86 Respiratory Rate 20 20 20 Blood Pressure 107/68 122/67 Pulse Oximetry 98 98 98 Oxygen Delivery Nasal Cannula Oxygen Flow Rate 2 09/07/22 01:22 09/07/22 05:22 09/07/22 06:41 Temperature 98.1 F 97.5 F L Pulse Rate 87 81 76 Respiratory Rate 20 20 Blood Pressure 101/47 L 114/63 Pulse Oximetry 99 99 Oxygen Delivery Oxygen Flow Rate 09/07/22 08:45 Temperature Pulse Rate Respiratory Rate Blood Pressure Pulse Oximetry Oxygen Delivery Nasal Cannula Oxygen Flow Rate 2 Intake/Output Intake/Output: Intake & Output 09/04/22 09/05/22 09/06/22 09/07/22 23:59 23:59 23:59 23:59 Intake Total 2150 840 Output Total 1920 800 Balance 230 40 Meds/Results Medications: Active Medications Generic Name Dose Route Start Last Admin Trade Name Pericoq PRN Reason Stop Dose Admin Acetaminophen 1,000 mg 09/06/22 20:00 09/07/22 10:09 Acetaminophen 500 Mg Tablet PO 1,000 mg Q6H LUZ Administration Allopurinol 200 mg 09/06/22 08:00 09/07/22 10:10 Allopurinol 100 Mg Tablet PO 200 mg DAILY@0800 LUZ Administration Apixaban 2.5 mg 09/07/22 09:00 09/07/22 10:11 Apixaban 2.5 Mg Tablet PO 2.5 mg Q12HR LUZ Administration Cyanocobalamin 1,000 mcg 09/07/22 09:00 Cyanocobalamin 1,000 Mcg Tablet PO
[2022-09-07] MEDS: oxyCODONE HCL (*CRX) 5 MG TAB IR PO ×4 (10:24→20:09)
[2022-09-07] MEDS: SODIUM CHLORIDE 0.9% IV 1,000 ML 125 ML IV CONT (10:29)
--- NOTE | 2022-09-07 10:58 | PM.CNCAR ---
Assessment and Plan Assessment and plan (1) Atrial fibrillation: Code(s): I48.91 - Unspecified atrial fibrillation Status: Acute Assessment and Plan: Brief episode of atrial fibrillation that has since spontaneously converted back to sinus rhythm. He was asymptomatic. He does have a chads Vasc score of 3 given age, high blood pressure and diabetes but in the setting of hip fracture and surgery, I do not think that this warrants full, long-term anticoagulation at this point. Inpatient telemetry monitoring. Will check a TSH, free T4 level and magnesium level. Will also order 2D echocardiogram with Doppler. Will consider outpatient telemetry monitoring +/-stress testing. Will add low-dose metoprolol tartrate 12.5 mg p.o. b.i.d.. (2) HTN (hypertension): Code(s): I10 - Essential (primary) hypertension Status: Acute Assessment and Plan: Continue home med (3) Hyperlipidemia: Code(s): E78.5 - Hyperlipidemia, unspecified Status: Acute Assessment and Plan: On statin (4) T2DM (type 2 diabetes mellitus): Code(s): E11.9 - Type 2 diabetes mellitus without complications Status: Acute Assessment and Plan: Per hospitalist (5) Closed hip fracture: Code(s): S72.009A - Fracture of unspecified part of neck of unspecified femur, initial encounter for closed fracture Status: Acute Assessment and Plan: Status post ORIF pod 1 History of Present Illness History of Present Illness Consult date/time: 09/07/22 10:58 Requesting physician: Gómez Rojas MD Consult reason: atrial fibrillation Reason For Visit: right hip fracture Narrative: Date of service 09/07/2022 Reason for consultation: Atrial fibrillation Requesting provider: Dr. Rojas History: Patient is a 72-year-old male who tripped and fell and broke his hip. He is postoperative day 1 for ORIF. Last night he was noted to have gone into atrial fibrillation with rapid ventricular response. He has since converted back to sinus rhythm. He was asymptomatic at the time and has had no chest pain, shortness of breath, syncope, presyncope, paroxysmal nocturnal dyspnea, orthopnea, edema palpitations. He has had no previous episodes of this in the past nor has had any palpitations that he is aware of. He was asymptomatic during this event. He does have a chads Vasc score of 3 again this is a short-lived event in his situation of recent hip fracture and surgery. Review of Systems Review of Systems: All systems reviewed & are unremarkable except as noted in HPI and below Constitutional: Constitutional: Denies body ache(s) Eyes: Eyes: Denies blurry vision ENT: Denies Normal hearing present Cardiovascular: Cardiovascular: Denies diaphoresis Respiratory: Respiratory: Denies cough Gastrointestinal: Gastrointestinal: Denies abdominal pain and Denies melena Genitourinary: Genitourinary: Denies hematuria Musculoskeletal: Musculoskeletal: Reports arthralgias Integumentary/Breasts: Skin/Breast: Denies dry skin Neurologic: Denies Abnormal speech present Psychiatric: Psychiatric: Denies behavioral changes Endocrine: Endocrine: Denies fatigue and Denies flushing Hematologic/Lymphatic: Hematologic/Lymphatic: Denies easy bleeding and Denies easy bruising Allergic/Immunologic: Allergic/Immunologic: Denies GI upset with certain foods PMFSH Past Medical History Medical History Asthma COPD (chronic obstructive pulmonary disease) DVT (deep venous thrombosis) HTN (hypertension) Hyperlipidemia Lymphoma Obesity Osteoarthritis T2DM (type 2 diabetes mellitus) Family History Family History Father Family history of congenital heart disease Sibling Family history of malignant neoplasm of cervix Diabetes mellitus Grandparent Diabetes mellitus Social History Social His
[2022-09-07] MEDS: CYANOCOBALAMIN 1,000 MCG TABLET 1000 MCG PO (11:03)
[2022-09-07 11:39] LABS: Glucose Point of Care 327 mg/dl (65-105)
[2022-09-07 12:39] LABS: T4 Thyroxine 6.98 ug/dL (5.53-11.0)
[2022-09-07 12:53] LABS: Thyroid Stimulating Hormone 0.839 uIU/mL (0.465-4.680)
--- NOTE | 2022-09-07 13:54 | WPDANESPN ---
Anes - Prog Note Post-Op Date/Time: 09/07/22 13:54 Vital Signs: Last Vital Signs Temp 36.2 C L 09/07/22 10:42 Pulse 84 09/07/22 10:42 Resp 18 09/07/22 10:42 BP 123/59 L 09/07/22 10:42 Pulse Ox 100 09/07/22 10:42 O2 Del Method Nasal Cannula 09/07/22 08:45 O2 Flow Rate 2 09/07/22 08:45 Pain Score (VAS): 0 I/O: Intake & Output 09/06/22 09/07/22 09/07/22 23:59 07:59 15:59 Intake Total 650 1600 480 Output Total 1020 800 Balance -370 1600 -320 Laboratory Tests 09/07/22 05:59 09/07/22 05:59 09/06/22 09/06/22 09/07/22 16:04 20:07 05:59 WBC 5.6 RBC 2.96 L Hgb 9.9 L Hct 30.0 L MCV 101.4 H MCH 33.4 MCHC 33.0 RDW 15.2 H Plt Count 92 L MPV 9.7 Immature Gran % (Auto) 0.4 Neut % (Auto) 77.7 H Lymph % (Auto) 14.3 L [place] % (Auto) 5.2 Eos % (Auto) 2.0 Baso % (Auto) 0.4 Lymph # (Auto) 0.80 L [place] # (Auto) 0.3 Eos # (Auto) 0.1 Baso # (Auto) 0.0 Abs Immat Gran (auto) 0.02 Absolute Neuts (auto) 4.4 Absolute Nucleated RBC 0.0 Nucleated RBC % 0.0 % Immature Plt Fraction 2.6 Sodium Potassium Chloride Carbon Dioxide Anion Gap BUN Creatinine Estim Creat Clear Calc Estimated GFR Glucose POC Capillary Glucose 197 H 254 H Calcium Magnesium TSH Thyroxine (T4) 09/07/22 09/07/22 09/07/22 05:59 08:26 11:23 WBC RBC Hgb Hct MCV MCH MCHC RDW Plt Count MPV Immature Gran % (Auto) Neut % (Auto) Lymph % (Auto) [place] % (Auto) Eos % (Auto) Baso % (Auto) Lymph # (Auto) [place] # (Auto) Eos # (Auto) Baso # (Auto) Abs Immat Gran (auto) Absolute Neuts (auto) Absolute Nucleated RBC Nucleated RBC % % Immature Plt Fraction Sodium 134 L Potassium 4.6 Chloride 105 Carbon Dioxide 24 Anion Gap 5 L BUN 22 H Creatinine 0.90 Estim Creat Clear Calc 70 Estimated GFR > 60 Glucose 349 H POC Capillary Glucose 279 H Calcium 7.6 L Magnesium 2.0 TSH 0.839 Thyroxine (T4) 6.98 09/07/22 11:33 WBC RBC Hgb Hct MCV MCH MCHC RDW Plt Count MPV Immature Gran % (Auto) Neut % (Auto) Lymph % (Auto) [place] % (Auto) Eos % (Auto) Baso % (Auto) Lymph # (Auto) [place] # (Auto) Eos # (Auto) Baso # (Auto) Abs Immat Gran (auto) Absolute Neuts (auto) Absolute Nucleated RBC Nucleated RBC % % Immature Plt Fraction Sodium Potassium Chloride Carbon Dioxide Anion Gap BUN Creatinine Estim Creat Clear Calc Estimated GFR Glucose POC Capillary Glucose 327 H Calcium Magnesium TSH Thyroxine (T4) Microbiology 09/05/22 20:33 Urine Clean Catch Urine Culture - Final Patient Feedback: Patient satisfied with anesthetic care.
[2022-09-07] MEDS: PERFLUTREN LIPID MICROSPHERES 1.5 ML VIAL DILUTED TO 10 ML TOTAL VOLUME IV PUSH (14:05)
[2022-09-07 16:59] LABS: Glucose Point of Care 334 mg/dl (65-105)
[2022-09-07 21:24] LABS: Glucose Point of Care 325 mg/dl (65-105)
[2022-09-07] MEDS: METOPROLOL TARTRATE 12.5 MG TABLET PO (22:11)
[2022-09-08] VITALS: PULSE 79
[2022-09-08] MEDS: oxyCODONE HCL (*CRX) 5 MG TAB IR PO ×6 (00:23→20:42)
[2022-09-08] MEDS: ACETAMINOPHEN 500 MG TABLET 1000 MG PO ×4 (01:49→20:41)
--- NOTE | 2022-09-08 07:40 | PM.PNORT ---
Subjective Subjective Date/Time Seen: 09/08/22 07:40 Postop day 2 patient is alert. He had an episode of atrial fibrillation last night. Cardiology has seen him. He had an echo that was done last night is not read yet. He is in normal sinus rhythm at this point. Pain overall is very well controlled. This point patient thinks he would like to go to rehab facility for short stent. Will have care coordination talk with him about this. I am not sure if he will qualify due to the fact that he is only bed to chair and I discussed this with him. But certainly will try. Patient will be on Eliquis for 6 weeks. I have put in instructions for discharge. Objective Data Vital Signs Vital Signs: Vital Signs - 24 hr 09/07/22 08:45 09/07/22 10:42 09/07/22 08:00 Temperature 36.2 C L Pulse Rate 84 79 Respiratory Rate 18 Blood Pressure 123/59 L Pulse Oximetry 100 Oxygen Delivery Nasal Cannula Oxygen Flow Rate 2 09/07/22 12:00 09/07/22 16:32 09/07/22 08:00 Temperature 36.1 C L Pulse Rate 89 78 Respiratory Rate 16 Blood Pressure 118/59 L Pulse Oximetry 95 96 Oxygen Delivery Nasal Cannula Oxygen Flow Rate 2 09/07/22 16:00 09/07/22 19:45 09/07/22 22:11 Temperature Pulse Rate 80 80 Respiratory Rate Blood Pressure Pulse Oximetry Oxygen Delivery Room Air Oxygen Flow Rate 09/07/22 21:22 09/07/22 20:00 09/08/22 00:00 Temperature 37.2 C Pulse Rate 86 100 79 Respiratory Rate 16 Blood Pressure 117/61 Pulse Oximetry 92 Oxygen Delivery Oxygen Flow Rate Intake/Output Intake/Output: Intake & Output 09/05/22 09/06/22 09/07/22 09/08/22 23:59 23:59 23:59 23:59 Intake Total 2150 2610 500 Output Total 1920 1300 550 Balance 230 1310 -50 Meds/Results Medications: Active Medications Generic Name Dose Route Start Last Admin Trade Name Freq PRN Reason Stop Dose Admin Acetaminophen 1,000 mg 09/06/22 20:00 09/08/22 01:49 Acetaminophen 500 Mg Tablet PO 1,000 mg Q6H LUZ Administration Allopurinol 200 mg 09/06/22 08:00 09/07/22 10:10 Allopurinol 100 Mg Tablet PO 200 mg DAILY@0800 [facility] Administration Apixaban 2.5 mg 09/07/22 09:00 09/07/22 22:11 Apixaban 2.5 Mg Tablet PO 2.5 mg Q12HR LUZ Administration Cyanocobalamin 1,000 mcg 09/07/22 09:00 09/07/22 11:03 Cyanocobalamin 1,000 Mcg Tablet PO 1,000 mcg DAILY [facility]Z Administration Folic Acid 1 mg 09/07/22 09:00 09/07/22 10:11 Folic Acid 1 Mg Tablet PO 1 mg DAILY [facility]Z Administration Gabapentin 1,200 mg 09/06/22 09:00 09/07/22 10:11 Gabapentin 400 Mg Capsule PO 1,200 mg DAILY [facility] Administration Insulin Aspart 5 units 09/06/22 08:00 09/07/22 17:04 Insulin Aspart (*Bkc) 100 Units/Ml 0.05 units/kg (5 units) 5 units SUB-Q Administration TIDWM [facility] Metoprolol Tartrate 12.5 mg 09/07/22 21:00 09/07/22 22:11 Metoprolol Tartrate 12.5 Mg Tablet PO 12.5 mg Q12HR [facility] Administration Miscellaneous Information 1 each 09/06/22 00:01 (Cholecalciferol (Vitamin D3) 1 Cap)Needs Strength XX 10/06/22 00:00 CLARIFY [facility] Miscellaneous Information 1 each 09/06/22 00:01 Nonformulary Drug (Dapagliflozin [Farxiga] 10 Mg Tablet)Can Patient Use From Home? XX 10/06/22 00:00 CLARIFY [facility] Miscellaneous Information 1 each 09/06/22 00:01 [place] 3 With Vitamin E Needs Strength Clarified. 2 Med Combination With Only One Strength XX 10/06/22 00:00 CLARIFY [facility] Morphine Sulfate 2 mg 09/06/22 19:37 Morphine Sulfate (*Crx) 2 Mg/Ml Inj IV PUSH Q1H PRN Pain Rated 7-10 Naloxone HCl 0.1 mg 09/06/22 19:37 Naloxone Hcl 0.4 Mg/Ml Vial IV PUSH Q2M PRN Opiate Reversal Non-Formulary Medication 1 cap 09/07/22 09:00 Cholecalciferol (Vitamin D3) PO 10/07/22 08:59 DAILY [facility] Non-Formulary Medication 10 mg 09/07/22 09:00 Dapagliflozin [Farxiga] PO 10/07/22 08:59 DAILY [facility] Non-Formular
[2022-09-08 08:00] VITALS: O2SAT 94
[2022-09-08] MEDS: INSULIN ASPART (*BKC) 100 UNITS/ML SUB-Q ×3 (09:30→16:54)
[2022-09-08 09:33] LABS: Glucose Point of Care 280 mg/dl (65-105)
[2022-09-08] MEDS: allopurinoL 100 MG TABLET 200 MG PO (09:35)
[2022-09-08] MEDS: APIXABAN 2.5 MG TABLET PO ×2 (09:36→20:42)
[2022-09-08] MEDS: GABAPENTIN 400 MG CAPSULE 1200 MG PO (09:36)
[2022-09-08] MEDS: FOLIC ACID 1 MG TABLET PO (09:36)
[2022-09-08] MEDS: polyethylene glycoL 3350 17 GM POWD.PACK PO (09:37)
[2022-09-08] MEDS: SENNA/DOCUSATE SODIUM TABLET 2 TAB PO ×2 (09:37→16:54)
[2022-09-08] MEDS: PANTOPRAZOLE 40 MG TABLET PO ×2 (09:37→16:54)
[2022-09-08] MEDS: ROSUVASTATIN 10 MG TABLET PO (09:37)
[2022-09-08] MEDS: CYANOCOBALAMIN 1,000 MCG TABLET 1000 MCG PO (09:37)
[2022-09-08 09:38] VITALS: PULSE 87
[2022-09-08] MEDS: METOPROLOL TARTRATE 12.5 MG TABLET PO ×2 (09:38→20:40)
--- NOTE | 2022-09-08 09:54 | PM.PNCARD ---
Progress Note: A&P Assessment and Plan (1) Atrial fibrillation: Code(s): I48.91 - Unspecified atrial fibrillation Status: Acute Plan Brief episode of atrial fibrillation that has since spontaneously converted back to sinus rhythm.? He was asymptomatic.? He does have a CHADS Vasc score of 3 given age, high blood pressure and diabetes but in the setting of hip fracture and surgery, I do not think that this warrants full, long-term anticoagulation at this point.? Echo showed LVEF 60-65%, no significant valvular disease. We will have patient wear a 30-day event monitor. He will need to pick this up from our Cardiology Clinic on the first floor of [facility] when he gets discharged. If he gets discharged over the weekend, he can come pick it up on a weekday. Please discharge patient on current dose of Metoprolol. We will have patient follow-up with us after discharge. Cardiology will sign off. Subjective Date/time seen: 09/08/22 09:54 Interval history: Reason for visit: Atrial fibrillation HPI: Patient is a 72-year-old male who tripped and fell and broke his hip.? He is postoperative day 1 for ORIF.? Last night he was noted to have gone into atrial fibrillation with rapid ventricular response.? He has since converted back to sinus rhythm.? He was asymptomatic at the time and has had no chest pain, shortness of breath, syncope, presyncope, paroxysmal nocturnal dyspnea, orthopnea, edema palpitations.? He has had no previous episodes of this in the past nor has had any palpitations that he is aware of.? He was asymptomatic during this event.? He does have a chads Vasc score of 3 again this is a short-lived event in his situation of recent hip fracture and surgery. Date of service 09/08/2022: Patient feeling well this AM. Not on telemetry, but heart rate this AM in the 70s-80s. Patient denies cardiac symptoms. Review of Systems Review of Systems: 8-point ROS obtained. Negative, unless stated in HPI. Exam Narrative: Awake alert oriented appears to be in no acute distress. Appears stated age Const: General: comfortable and no acute distress HENMT: Face/Nose/Sinus: Normal nares present Mouth: Yes moist mucous membranes Eyes: General: appearance normal, both eyes and all related structures Sclera: sclerae normal Neck: Neck: supple Chest: Other: No reproducible chest wall pain to palpation Resp: Effort & Inspection: normal respiratory effort Auscultation: clear to auscultation bilaterally Cardio: Rate: regular rate Rhythm: regular rhythm Heart sounds: no murmurs Skin: General skin exam: normal color Neuro: Speech: normal speech Extrem: General: normal to inspection Psych: Mental Status: mental status grossly normal Affect: normal affect Objective Data Vital Signs Vital Signs: Vital Signs - 24 hr 09/07/22 10:42 09/07/22 12:00 09/07/22 16:32 Temperature 36.2 C L 36.1 C L Pulse Rate 84 89 78 Respiratory Rate 18 16 Blood Pressure 123/59 L 118/59 L Pulse Oximetry 100 95 Oxygen Delivery 09/07/22 16:00 09/07/22 19:45 09/07/22 22:11 Temperature Pulse Rate 80 80 Respiratory Rate Blood Pressure Pulse Oximetry Oxygen Delivery Room Air 09/07/22 21:22 09/07/22 20:00 09/08/22 00:00 Temperature 37.2 C Pulse Rate 86 100 79 Respiratory Rate 16 Blood Pressure 117/61 Pulse Oximetry 92 Oxygen Delivery 09/08/22 09:38 Temperature Pulse Rate 87 Respiratory Rate Blood Pressure Pulse Oximetry Oxygen Delivery Intake/Output Intake/Output: Intake & Output 09/05/22 09/06/22 09/07/22 09/08/22 23:59 23:59 23:59 23:59 Intake Total 2150 2610 500 Output Total 1920 1300 550 Balance 230 1310 -50 Meds/Results Medications: Active Medications Generic Name Dose Route Start Last Admin Trade Name Coy PRN Reason Stop Dose Admin Acetaminophen 1,000 mg 09/06/22 20:00 09/08/22 09:35 Acetaminophen 500 Mg Tablet PO 1,000 mg
[2022-09-08 12:26] LABS: Glucose Point of Care 276 mg/dl (65-105)
--- NOTE | 2022-09-08 14:37 | PM.IMPN ---
Progress Note: A&P Assessment and Plan (1) Closed hip fracture: Code(s): S72.009A - Fracture of unspecified part of neck of unspecified femur, initial encounter for closed fracture Status: Acute Assessment and Plan: POD #1 femoral neck fracture repair with screw fixation, doing well, pain controlled (2) T2DM (type 2 diabetes mellitus): Code(s): E11.9 - Type 2 diabetes mellitus without complications Status: Acute Assessment and Plan: accuchecks, SSI, monitor BG, a1c is 8.1 (3) UTI (urinary tract infection): Code(s): N39.0 - Urinary tract infection, site not specified Status: Ruled-out Assessment and Plan: urine culture showed mixed genital kym, no abx, no UTI noted Plan DVT prophylaxis with SCDs GI prophylaxis not indicated Code status full code Subjective Date/time seen: 09/08/22 14:37 Patient was seen during the morning rounds today. Patient is feeling slightly better. Pain is under control. No shortness of breath or chest pain. Review of Systems Constitutional: Constitutional: Denies chills, Denies fatigue, Denies fever(s), Denies frequent falls, Denies lethargy, Denies malaise, Denies night sweats and Denies weakness Eyes: Eyes: Denies change in vision ENT: Denies dysphagia, Denies vertigo, Denies dizziness and Denies odynophagia Cardiovascular: Cardiovascular: Denies chest pain, Denies leg edema, Denies lightheadedness, Denies palpitations, Denies dyspnea and Denies dyspnea on exertion Respiratory: Respiratory: Denies chest congestion, Denies cough, Denies excessive phlegm production, Denies pain on inspiration, Denies dyspnea, Denies dyspnea on exertion and Denies wheezing Gastrointestinal: Gastrointestinal: Denies abdominal pain, Denies dysphagia, Denies dyspepsia, Denies heartburn, Denies diarrhea, Denies nausea, Denies odynophagia and Denies vomiting Genitourinary: Genitourinary: Denies dysuria Musculoskeletal: Musculoskeletal: Reports limited range of motion ( right hip) Integumentary/Breasts: Skin/Breast: Denies rash Neurologic: Denies vertigo, Denies dizziness, Denies frequent falls, Denies focal weakness, Denies Sensory deficit (Neuro) and Denies weakness Psychiatric: Psychiatric: Reports no additional psychiatric complaints and Reports as per HPI Endocrine: Endocrine: Denies cold intolerance, Denies fatigue, Denies flushing, Denies heat intolerance, Denies polyphagia, Denies polydipsia and Denies palpitations Hematologic/Lymphatic: Hematologic/Lymphatic: Reports no additional hematologic/lymphatic complaints and Reports as per HPI Allergic/Immunologic: Allergic/Immunologic: Reports no additional allergic/immunologic complaints, Reports as per HPI and Denies wheezing Exam Narrative: General: No acute distress, alert and oriented per baseline HEENT: Atraumatic, normocephalic, mucous membranes moist CV: Regular rate and rhythm, S1, S2 Lungs: Clear to auscultation bilaterally, no rales or crackles noted, no wheezes, good air entry Abdomen: Soft, nontender, nondistended Extremities: Normal to inspection Skin: No rashes noted, no lesions or wounds seen Psych: Euthymic, normal affect Const: General: comfortable, no acute distress, well developed, alert, awake and average body habitus Nutritional Appearance: average body habitus Orientation/consciousness: patient oriented x3 HENMT: Head: normal to inspection, normocephalic and atraumatic Ears: hearing grossly normal bilaterally Face/Nose/Sinus: normal facial exam Face and sinus: normal facial exam Eyes: General: appearance normal, both eyes and all related structures Pupils: Equal, round and reactive pupils present EOM: EOMs intact bilaterally Neck: Neck: full ROM, no lymphadenopathy and no JVD Thyroid: thyroid normal Lymphatic: no lymphadenopathy noted Resp: Effort & Inspection: normal respiratory effort and able to speak in complete sentences Auscultation: clear to auscultation b
[2022-09-08 16:39] LABS: Glucose Point of Care 287 mg/dl (65-105)
[2022-09-08 20:00] VITALS: PULSE 70; RESP 16; O2SAT 94
[2022-09-08 20:40] VITALS: PULSE 70
[2022-09-09 05:48] VITALS: BP 128/91; PULSE 104; RESP 14; TEMP 37.4; O2SAT 97
--- NOTE | 2022-09-09 08:03 | ECG_ITS ---
Measurements Intervals [place] Rate: 134 P: [place]: 0 QRS: -42 QRSD: 95 T: 58 QT: 285 QTc: 426 Interpretive Statements ATRIAL FIBRILLATION WITH RAPID VENTRICULAR RESPONSE LEFT AXIS DEVIATION LOW QRS VOLTAGE IN EXTREMITY LEADS PATTERN CONSISTENT WITH PULMONARY DISEASE ABNORMAL ECG COMPARED TO ECG 09/07/2022 00:41:05 NO CHANGE Electronically Signed On 09-09-2022 14:07:18 [employer]ONGE CLIPPER by Jaswinder Powell M.D.
[2022-09-09 08:05] LABS: Glucose Point of Care 246 mg/dl (65-105)
[2022-09-09 08:15] VITALS: O2SAT 97
[2022-09-09] MEDS: polyethylene glycoL 3350 17 GM POWD.PACK PO (08:17)
[2022-09-09] MEDS: SENNA/DOCUSATE SODIUM TABLET 2 TAB PO ×2 (08:17→17:16)
[2022-09-09 08:18] VITALS: PULSE 143
[2022-09-09] MEDS: APIXABAN 2.5 MG TABLET PO ×2 (08:18→21:48)
[2022-09-09] MEDS: ROSUVASTATIN 10 MG TABLET PO (08:18)
[2022-09-09] MEDS: allopurinoL 100 MG TABLET 200 MG PO (08:18)
[2022-09-09] MEDS: GABAPENTIN 400 MG CAPSULE 1200 MG PO (08:18)
[2022-09-09] MEDS: ACETAMINOPHEN 500 MG TABLET 1000 MG PO ×3 (08:18→21:48)
[2022-09-09] MEDS: METOPROLOL TARTRATE 12.5 MG TABLET PO ×2 (08:18→21:48)
[2022-09-09] MEDS: FOLIC ACID 1 MG TABLET PO (08:19)
[2022-09-09] MEDS: CYANOCOBALAMIN 1,000 MCG TABLET 1000 MCG PO (08:19)
[2022-09-09] MEDS: PANTOPRAZOLE 40 MG TABLET PO ×2 (08:19→17:16)
[2022-09-09] MEDS: INSULIN ASPART (*BKC) 100 UNITS/ML SUB-Q ×3 (08:20→17:17)
[2022-09-09 08:25] VITALS: O2SAT 94
[2022-09-09] MEDS: oxyCODONE HCL (*CRX) 5 MG TAB IR PO ×2 (08:25→15:07)
[2022-09-09 08:42] LABS: Alveolar/Arterial O2 Gradient 85.9 mmHg; Base Excess ABG -1.6 mEq/l (+/-2.0); Device NASAL CANNULA; Fractional Inspired Oxygen 28 %; HCO3 ABG 22.9 mEq/l (22.0-26.0); Modified Allen's Test Pass; Oxygen Content ABG 14.7 %vol (16.0-22.0); Oxyhemoglobin 92.5 % THb (90.0-100.0); PCO2 ABG 37.8 mmHg (35.0-45.0); PO2 ABG 69.1 mmHg (80.0-100.0); PO2 FiO2 Ratio Arterial Blood 2.47 %; Site Drawn LEFT RADIAL; Total Hemoglobin 11.3 g/dL (12.0-18.0)
--- NOTE | 2022-09-09 09:17 | PM.PNORT ---
Progress Note: A&P Assessment and Plan (1) Fracture of femoral neck, right: Code(s): S72.001A - Fracture of unspecified part of neck of right femur, initial encounter for closed fracture Status: Acute Assessment and Plan: Patient is postoperative day 3. After internal fixation in situ with cannulated screws slightly abducted nondisplaced right subcapital femoral neck fracture. He is feeling well today. He does not always need the Oxy code own now and he is taking it as needed. Will continue with the Tylenol. His postoperative course has been complicated by patient going in and out of atrial fibrillation. Director Employment feels that he may not need full-strength anticoagulation at this point. He is on Eliquis 2.5 mg twice daily for DVT prophylaxis.His oxygenation status has gone down with the episodes of rapid ventricular rate which is now controlled on metoprolol. His platelets were 94,000 today. They were 102,000 immediately preoperative so he has pre-existing thrombocytopenia. His hemoglobin is 9.9 this morning. His renal function has been normal. His blood sugars run in the 200s and 300s still. His urine culture was negative. On exam his wound is dry. His no significant swelling is leg. He is alert and oriented. 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 At that point we will obtain x-rays if he has adequate healing and absence of marked impaction, we can probably start working on partial weight-bearing ambulation with plans to be weight-bearing as tolerated 2 weeks later. Rehab facility placement is being arranged currently when he is felt medically stable for discharge. He would be ready from an orthopedic standpoint for discharge whenever he is felt medically ready. Subjective Subjective Date/Time Seen: 09/09/22 09:17 Objective Data Vital Signs Vital Signs: Vital Signs - 24 hr 09/08/22 09:38 09/08/22 20:40 09/08/22 20:00 Temperature Pulse Rate 87 70 70 Respiratory Rate 16 Blood Pressure Pulse Oximetry 94 Oxygen Delivery Nasal Cannula Oxygen Flow Rate 2 09/09/22 05:48 09/09/22 08:18 Temperature 37.4 C Pulse Rate 104 H 143 H Respiratory Rate 14 Blood Pressure 128/91 H Pulse Oximetry 97 Oxygen Delivery Oxygen Flow Rate Intake/Output Intake/Output: Intake & Output 09/06/22 09/07/22 09/08/22 09/09/22 23:59 23:59 23:59 23:59 Intake Total 2150 2610 1720 500 Output Total 1920 1300 1275 1350 Balance 230 1310 445 -850 Meds/Results Medications: Active Medications Generic Name Dose Route Start Last Admin Trade Name Freq PRN Reason Stop Dose Admin Acetaminophen 1,000 mg 09/06/22 20:00 09/09/22 08:18 Acetaminophen 500 Mg Tablet PO 1,000 mg Q6H LUZ Administration Allopurinol 200 mg 09/06/22 08:00 09/09/22 08:18 Allopurinol 100 Mg Tablet PO 200 mg DAILY@0800 [facility] Administration Apixaban 2.5 mg 09/07/22 09:00 09/09/22 08:18 Apixaban 2.5 Mg Tablet PO 2.5 mg Q12HR LUZ Administration Cyanocobalamin 1,000 mcg 09/07/22 09:00 09/09/22 08:19 Cyanocobalamin 1,000 Mcg Tablet PO 1,000 mcg DAILY [facility] Administration Dextrose 12.5 gm 09/09/22 08:05 Dextrose 50% 25 Gm/50 Ml Syringe IV PUSH PRN PRN Hypoglycemia Protocol Folic Acid 1 mg 09/07/22 09:00 09/09/22 08:19 Folic Acid 1 Mg Tablet PO 1 mg DAILY [facility] Administration Gabapentin 1,200 mg 09/06/22 09:00 09/09/22 08:18 Gabapentin 400 Mg Capsule PO 1,200 mg DAILY [facility] Administration Glucagon 1 mg 09/09/22 08:05
[2022-09-09 09:41] LABS: Basophils Percent Auto 0.4 % (0.2-1.2); Eosinophils Absolute Auto 0.2 K/mm3 (0-0.3); Eosinophils Percent Auto 3.7 % (0-4.4); Hematocrit 31.3 % (42.0-52.0); Hemoglobin 10.5 g/dL (14.0-18.0); Immature Granulocyte Absolute 0.02 K/mm3 (0.00-0.031); Immature Granulocyte Percent A 0.4 % (0-0.5); Lymphocytes Absolute Auto 0.63 K/mm3 (0.9-3.2); Mean Corpuscular HGB Conc 33.5 g/dl (32-36); Mean Corpuscular Hemoglobin 33.9 pg (26-34); Mean Platelet Volume 9.6 fl (7.4-10.4); Monocytes Absolute Auto 0.3 K/mm3 (0.1-0.6); Monocytes Percent Auto 6.6 % (2.6-8.5); Neutrophils Absolute Auto 3.7 K/mm3 (1.3-6.7); Neutrophils Percent Auto 75.9 % (45.5-73.1); Platelet Count Result 100 k/mm3 (150-375); Red Cell Distribution Width 15.1 % (11.5-14.5); White Blood Count 4.9 K/mm3 (4.5-10.0)
[2022-09-09 09:47] LABS: Alanine Aminotransferase 26 U/L (6-50); Albumin Level 3.9 g/dL (3.5-5.1); Alkaline Phosphatase 98 U/L (38-126); Anion Gap 11 mmol/L (8-16); Aspartate Amino Transferase 26 U/L (17-59); Bilirubin,Total 0.9 mg/dL (0.2-1.3); Blood Urea Nitrogen 23 mg/dL (9-20); Calcium 8.4 mg/dL (8.4-10.2); Carbon Dioxide 21 mmol/L (22-30); Chloride 101 mmol/L (98-107); Estimated CRCL calculation 78 ml/min; Estimated Glomerular Filt Rate > 60; Glucose 327 mg/dL (65-110); Potassium 4.4 mmol/L (3.4-5.0); Sodium 133 mmol/L (137-145)
--- NOTE | 2022-09-09 10:02 | PM.IMPN ---
Progress Note: A&P Assessment and Plan (1) Closed hip fracture: Code(s): S72.009A - Fracture of unspecified part of neck of unspecified femur, initial encounter for closed fracture Status: Acute Assessment and Plan: POD #1 femoral neck fracture repair with screw fixation, doing well, pain controlled (2) T2DM (type 2 diabetes mellitus): Code(s): E11.9 - Type 2 diabetes mellitus without complications Status: Acute Assessment and Plan: accuchecks, SSI, monitor BG, a1c is 8.1 (3) UTI (urinary tract infection): Code(s): N39.0 - Urinary tract infection, site not specified Status: Ruled-out Assessment and Plan: urine culture showed mixed genital kym, no abx, no UTI noted Plan DVT prophylaxis with SCDs GI prophylaxis not indicated Code status full code Subjective Date/time seen: 09/09/ 10:02 Patient was seeing during morning rounds today. Mild sob, no chest pain. No Abdominal pain, mood stable. Review of Systems Constitutional: Constitutional: Denies chills, Denies fatigue, Denies fever(s), Denies frequent falls, Denies lethargy, Denies malaise, Denies night sweats and Denies weakness Eyes: Eyes: Denies change in vision ENT: Denies dysphagia, Denies vertigo, Denies dizziness and Denies odynophagia Cardiovascular: Cardiovascular: Denies chest pain, Denies leg edema, Denies lightheadedness, Denies palpitations, Denies dyspnea and Denies dyspnea on exertion Respiratory: Respiratory: Denies chest congestion, Denies cough, Denies excessive phlegm production, Denies pain on inspiration, Denies dyspnea, Denies dyspnea on exertion and Denies wheezing Gastrointestinal: Gastrointestinal: Denies abdominal pain, Denies dysphagia, Denies dyspepsia, Denies heartburn, Denies diarrhea, Denies nausea, Denies odynophagia and Denies vomiting Genitourinary: Genitourinary: Denies dysuria Musculoskeletal: Musculoskeletal: Reports limited range of motion ( right hip) Integumentary/Breasts: Skin/Breast: Denies rash Neurologic: Denies vertigo, Denies dizziness, Denies frequent falls, Denies focal weakness, Denies Sensory deficit (Neuro) and Denies weakness Psychiatric: Psychiatric: Reports no additional psychiatric complaints and Reports as per HPI Endocrine: Endocrine: Denies cold intolerance, Denies fatigue, Denies flushing, Denies heat intolerance, Denies polyphagia, Denies polydipsia and Denies palpitations Hematologic/Lymphatic: Hematologic/Lymphatic: Reports no additional hematologic/lymphatic complaints and Reports as per HPI Allergic/Immunologic: Allergic/Immunologic: Reports no additional allergic/immunologic complaints, Reports as per HPI and Denies wheezing Exam Narrative: General: No acute distress, alert and oriented per baseline HEENT: Atraumatic, normocephalic, mucous membranes moist CV: Regular rate and rhythm, S1, S2 Lungs: Clear to auscultation bilaterally, no rales or crackles noted, no wheezes, good air entry Abdomen: Soft, nontender, nondistended Extremities: Normal to inspection Skin: No rashes noted, no lesions or wounds seen Psych: Euthymic, normal affect Const: General: comfortable, no acute distress, well developed, alert, awake and average body habitus Nutritional Appearance: average body habitus Orientation/consciousness: patient oriented x3 HENMT: Head: normal to inspection, normocephalic and atraumatic Ears: hearing grossly normal bilaterally Face/Nose/Sinus: normal facial exam Face and sinus: normal facial exam Eyes: General: appearance normal, both eyes and all related structures Pupils: Equal, round and reactive pupils present EOM: EOMs intact bilaterally Neck: Neck: full ROM, no lymphadenopathy and no JVD Thyroid: thyroid normal Lymphatic: no lymphadenopathy noted Resp: Effort & Inspection: normal respiratory effort and able to speak in complete sentences Auscultation: clear to auscultation bilaterally Cardio: Jugular venous disten
[2022-09-09 10:04] LABS: Troponin I 0.023 ng/mL (0.000-0.034)
[2022-09-09 10:06] LABS: D Dimer 3.65 ug/mL (<0.48)
[2022-09-09] MEDS: DEXTROSE 5%/0.45% SOD CHL 1,000 ML 100 ML IV CONT (10:50)
[2022-09-09 11:53] LABS: NT Pro B Type Natriuretic Pept 6760 pg/mL (5-100)
[2022-09-09 12:03] LABS: Glucose Point of Care 310 mg/dl (65-105)
[2022-09-09 16:58] LABS: Glucose Point of Care 309 mg/dl (65-105)
[2022-09-09 20:00] VITALS: BP 160/77; PULSE 108; RESP 20; TEMP 36.7; O2SAT 99
[2022-09-09 22:49] LABS: Glucose Point of Care 401 mg/dl (65-105)
[2022-09-10] VITALS (8 sets, daily range): BP systolic 123–151; BP diastolic 58–82; PULSE 84–125; RESP 16–20; TEMP 36.1–36.7; O2SAT 95–98
[2022-09-10 00:20] LABS: Glucose Point of Care 270 mg/dl (65-105)
[2022-09-10 00:20] LABS: Glucose Point of Care 275 mg/dl (65-105)
[2022-09-10] MEDS: ACETAMINOPHEN 500 MG TABLET 1000 MG PO ×4 (05:40→21:42)
[2022-09-10 07:59] LABS: Glucose Point of Care 239 mg/dl (65-105)
[2022-09-10] MEDS: INSULIN ASPART (*BKC) 100 UNITS/ML SUB-Q ×3 (08:18→16:55)
[2022-09-10] MEDS: GABAPENTIN 400 MG CAPSULE 1200 MG PO (08:33)
[2022-09-10] MEDS: SENNA/DOCUSATE SODIUM TABLET 2 TAB PO (08:33)
[2022-09-10] MEDS: APIXABAN 2.5 MG TABLET PO ×2 (08:33→21:43)
[2022-09-10] MEDS: METOPROLOL TARTRATE 12.5 MG TABLET PO (08:33)
[2022-09-10] MEDS: allopurinoL 100 MG TABLET 200 MG PO (08:34)
[2022-09-10] MEDS: POTASSIUM CHLORIDE 20 MEQ TABLET.ER PO (08:34)
[2022-09-10] MEDS: ROSUVASTATIN 10 MG TABLET PO (08:34)
[2022-09-10] MEDS: CYANOCOBALAMIN 1,000 MCG TABLET 1000 MCG PO (08:34)
[2022-09-10] MEDS: PANTOPRAZOLE 40 MG TABLET PO ×2 (08:34→16:53)
[2022-09-10] MEDS: FOLIC ACID 1 MG TABLET PO (08:34)
[2022-09-10] MEDS: polyethylene glycoL 3350 17 GM POWD.PACK PO (08:35)
[2022-09-10 10:02] LABS: Hematocrit 31.8 % (42.0-52.0); Hemoglobin 10.9 g/dL (14.0-18.0); Mean Corpuscular HGB Conc 34.3 g/dl (32-36); Mean Corpuscular Hemoglobin 34.1 pg (26-34); Mean Corpuscular Volume 99.4 fl (80-100); Mean Platelet Volume 9.5 fl (7.4-10.4); Platelet Count Result 130 k/mm3 (150-375); Red Cell Distribution Width 14.7 % (11.5-14.5); White Blood Count 5.2 K/mm3 (4.5-10.0)
[2022-09-10 10:20] LABS: Alanine Aminotransferase 23 U/L (6-50); Alkaline Phosphatase 105 U/L (38-126); Anion Gap 9 mmol/L (8-16); Aspartate Amino Transferase 21 U/L (17-59); Bilirubin,Total 0.8 mg/dL (0.2-1.3); Blood Urea Nitrogen 21 mg/dL (9-20); Calcium 8.6 mg/dL (8.4-10.2); Carbon Dioxide 24 mmol/L (22-30); Chloride 97 mmol/L (98-107); Estimated CRCL calculation 78 ml/min; Estimated Glomerular Filt Rate > 60; Glucose 288 mg/dL (65-110); Potassium 4.6 mmol/L (3.4-5.0); Sodium 130 mmol/L (137-145)
[2022-09-10] MEDS: FUROSEMIDE INJ 40 MG/4 ML VIAL IV PUSH (10:58)
[2022-09-10 12:10] LABS: Glucose Point of Care 327 mg/dl (65-105)
--- NOTE | 2022-09-10 13:03 | PM.IMPN ---
Progress Note: A&P Assessment and Plan (1) Closed hip fracture: Code(s): S72.009A - Fracture of unspecified part of neck of unspecified femur, initial encounter for closed fracture Status: Acute Assessment and Plan: status post femoral neck fracture repair with screw fixation, doing well, pain controlled Orthopedic on board (2) T2DM (type 2 diabetes mellitus): Code(s): E11.9 - Type 2 diabetes mellitus without complications Status: Acute Assessment and Plan: accuchecks, SSI, monitor BG, a1c is 8.1 (3) UTI (urinary tract infection): Code(s): N39.0 - Urinary tract infection, site not specified Status: Ruled-out Assessment and Plan: urine culture showed mixed genital kym, no abx, no UTI noted Plan atrial fibrillation intermittent proximal CTA with no evidence of PE no focal pneumonia. Small pleural effusion with compressive atelectasis at the lung bases.Venous duplex negative for DVT. Echo with LVEF 60-65% no significant valvular disease. Chads Vasc score 3 given 80s high blood pressure and diabetes but long-term anticoagulation avoided due to recent hip surgery and fracture. Thirty day event monitor at discharge currently on metoprolol Looks like she went AFib with RVR again. Will place on telemetry and monitor Soft tissue nodule anterior chest wall 1.4 cm to consider percutaneous biopsy DVT prophylaxis with SCDs GI prophylaxis not indicated Code status full code History of DVT in arm in the past Subjective Date/time seen: 09/10/22 13:03 Interval history: had some confusion overnight. He was hallucinating. Reports some shortness of breath. Denies any leg swelling. Family at bedside discussed with them. Chart reviewed at length. Review of Systems Review of Systems: All systems reviewed & are unremarkable except as noted in HPI and below Exam Narrative: General: No acute distress, alert and oriented per baseline HEENT: Atraumatic, normocephalic, mucous membranes moist CV: irregularly irregular, mildly tachycardic, S1, S2 Lungs: Clear to auscultation bilaterally, no rales or crackles noted, no wheezes, good air entry Abdomen: Soft, nontender, nondistended Extremities: Normal to inspection Skin: No rashes noted, no lesions or wounds seen Psych: Euthymic, normal affect Objective Data Vital Signs Vital Signs: Vital Signs - 24 hr 09/09/22 20:00 09/10/22 05:37 09/10/22 08:33 Temperature 98.1 F 98.1 F Pulse Rate 108 H 98 97 Respiratory Rate 20 20 Blood Pressure 160/77 H 123/82 Pulse Oximetry 99 96 Intake/Output Intake/Output: Intake & Output 09/07/22 09/08/22 09/09/22 09/10/22 23:59 23:59 23:59 23:59 Intake Total 2610 1720 1470 340 Output Total 1300 1275 2625 800 Balance 1310 019 -1277 -239 Meds/Results Medications: Active Medications Generic Name Dose Route Start Last Admin Trade Name Freq PRN Reason Stop Dose Admin Acetaminophen 1,000 mg 09/06/22 20:00 09/10/22 08:33 Acetaminophen 500 Mg Tablet PO 1,000 mg Q6H LUZ Administration Allopurinol 200 mg 09/06/22 08:00 09/10/22 08:34 Allopurinol 100 Mg Tablet PO 200 mg DAILY@0800 [facility] Administration Apixaban 2.5 mg 09/07/22 09:00 09/10/22 08:33 Apixaban 2.5 Mg Tablet PO 2.5 mg Q12HR LUZ Administration Cyanocobalamin 1,000 mcg 09/07/22 09:00 09/10/22 08:34 Cyanocobalamin 1,000 Mcg Tablet PO 1,000 mcg DAILY [facility] Administration Dextrose 12.5 gm 09/09/22 08:05 Dextrose 50% 25 Gm/50 Ml Syringe IV PUSH PRN PRN Hypoglycemia Protocol Folic Acid 1 mg 09/07/22 09:00 09/10/22 08:34 Folic Acid 1 Mg Tablet PO 1 mg DAILY LUZ Administration Furosemide 40 mg 09/10/22 09:00 09/10/22 10:58 Furosemide Inj 40 Mg/4 Ml Vial IV PUSH 40 mg DAILY [facility]Z Administration Gabapentin 1,200 mg 09/06/22 09:00 09/10/22 08:33 Gabapentin 400 Mg Capsule PO 1,200 mg DAILY [facility]Z Administration Glucagon 1 mg
[2022-09-10] MEDS: METOPROLOL TARTRATE INJ 5 MG/5 ML VIAL IV PUSH (14:23)
[2022-09-10 16:46] LABS: Glucose Point of Care 343 mg/dl (65-105)
[2022-09-10 21:04] LABS: Glucose Point of Care 420 mg/dl (65-105)
[2022-09-10] MEDS: METOPROLOL TARTRATE 25 MG TABLET PO (21:44)
[2022-09-10 21:56] LABS: Glucose Point of Care 387 mg/dl (65-105)
[2022-09-10] MEDS: INSULIN ASPART (*BKC) 100 UNITS/ML 6 UNITS SUB-Q (22:39)
[2022-09-11] VITALS (10 sets, daily range): BP systolic 134–183; BP diastolic 62–100; PULSE 73–84; RESP 18–20; TEMP 35.9–36.6; O2SAT 96–98
[2022-09-11] MEDS: ACETAMINOPHEN 500 MG TABLET 1000 MG PO ×4 (03:00→20:20)
[2022-09-11 07:20] LABS: Basophils Percent Auto 0.3 % (0.2-1.2); Eosinophils Absolute Auto 0.2 K/mm3 (0-0.3); Eosinophils Percent Auto 4.7 % (0-4.4); Hematocrit 27.5 % (42.0-52.0); Hemoglobin 9.2 g/dL (14.0-18.0); Immature Granulocyte Absolute 0.01 K/mm3 (0.00-0.031); Immature Granulocyte Percent A 0.3 % (0-0.5); Lymphocytes Absolute Auto 0.74 K/mm3 (0.9-3.2); Lymphocytes Percent Auto 19.5 % (18.3-44.2); Mean Corpuscular HGB Conc 33.5 g/dl (32-36); Mean Corpuscular Hemoglobin 33.1 pg (26-34); Mean Corpuscular Volume 98.9 fl (80-100); Mean Platelet Volume 10.1 fl (7.4-10.4); Monocytes Absolute Auto 0.3 K/mm3 (0.1-0.6); Neutrophils Absolute Auto 2.5 K/mm3 (1.3-6.7); Neutrophils Percent Auto 66.2 % (45.5-73.1); Platelet Count Result 133 k/mm3 (150-375); Red Blood Count 2.78 M/mm3 (4.6-6.20); Red Cell Distribution Width 14.9 % (11.5-14.5); White Blood Count 3.8 K/mm3 (4.5-10.0)
[2022-09-11 07:22] LABS: Alanine Aminotransferase 21 U/L (6-50); Albumin Level 3.5 g/dL (3.5-5.1); Alkaline Phosphatase 133 U/L (38-126); Anion Gap 9 mmol/L (8-16); Aspartate Amino Transferase 18 U/L (17-59); Bilirubin,Total 0.5 mg/dL (0.2-1.3); Blood Urea Nitrogen 26 mg/dL (9-20); Calcium 8.3 mg/dL (8.4-10.2); Carbon Dioxide 25 mmol/L (22-30); Chloride 100 mmol/L (98-107); Estimated CRCL calculation 70 ml/min; Estimated Glomerular Filt Rate > 60; Glucose 393 mg/dL (65-110); Potassium 4.2 mmol/L (3.4-5.0); Sodium 134 mmol/L (137-145)
[2022-09-11 07:52] LABS: Glucose Point of Care 368 mg/dl (65-105)
[2022-09-11] MEDS: INSULIN ASPART (*BKC) 100 UNITS/ML SUB-Q ×3 (08:31→16:40)
[2022-09-11] MEDS: GABAPENTIN 400 MG CAPSULE 1200 MG PO (08:32)
[2022-09-11] MEDS: PANTOPRAZOLE 40 MG TABLET PO ×2 (08:32→16:31)
[2022-09-11] MEDS: APIXABAN 2.5 MG TABLET PO (08:32)
[2022-09-11] MEDS: POTASSIUM CHLORIDE 20 MEQ TABLET.ER PO (08:32)
[2022-09-11] MEDS: CYANOCOBALAMIN 1,000 MCG TABLET 1000 MCG PO (08:32)
[2022-09-11] MEDS: ROSUVASTATIN 10 MG TABLET PO (08:33)
[2022-09-11] MEDS: allopurinoL 100 MG TABLET 200 MG PO (08:33)
[2022-09-11] MEDS: METOPROLOL TARTRATE 25 MG TABLET PO ×2 (08:33→20:22)
[2022-09-11] MEDS: FUROSEMIDE INJ 40 MG/4 ML VIAL IV PUSH (08:33)
[2022-09-11] MEDS: FOLIC ACID 1 MG TABLET PO (08:33)
[2022-09-11 11:46] LABS: Glucose Point of Care 323 mg/dl (65-105)
--- NOTE | 2022-09-11 12:59 | PM.PNORT ---
Subjective Subjective Date/Time Seen: 09/11/22 12:59Postop day 5 patient is alert. His dressing is dry. His pain is well controlled. Care coordination is working on patient to get him transferred to a [facility]. He has been accepted. Hopefully he will be transferred either today or tomorrow Objective Data Vital Signs Vital Signs: Vital Signs - 24 hr 09/10/22 14:23 09/10/22 14:00 09/10/22 16:00 Temperature 36.1 C L Pulse Rate 125 H 113 H 109 H Respiratory Rate 16 Blood Pressure 151/81 H Pulse Oximetry 95 Oxygen Delivery 09/10/22 22:00 09/10/22 20:20 09/11/22 00:00 Temperature 36.4 C Pulse Rate 84 112 H 84 Respiratory Rate 18 Blood Pressure 137/58 L Pulse Oximetry 98 Oxygen Delivery 09/11/22 04:00 09/11/22 06:00 09/11/22 08:33 Temperature 36.6 C Pulse Rate 76 79 78 Respiratory Rate 20 Blood Pressure 183/100 H Pulse Oximetry 97 Oxygen Delivery 09/11/22 08:30 Temperature Pulse Rate Respiratory Rate Blood Pressure Pulse Oximetry Oxygen Delivery Room Air Intake/Output Intake/Output: Intake & Output 09/08/22 09/09/22 09/10/22 09/11/22 23:59 23:59 23:59 23:59 Intake Total 1720 1470 1200 850 Output Total 1275 2625 2075 0 Balance 106 -3255 -875 850 Meds/Results Medications: Active Medications Generic Name Dose Route Start Last Admin Trade Name Pericoq PRN Reason Stop Dose Admin Acetaminophen 1,000 mg 09/06/22 20:00 09/11/22 08:32 Acetaminophen 500 Mg Tablet PO 1,000 mg Q6H [facility] Administration Allopurinol 200 mg 09/06/22 08:00 09/11/22 08:33 Allopurinol 100 Mg Tablet PO 200 mg DAILY@0800 [facility] Administration Apixaban 2.5 mg 09/07/22 09:00 09/11/22 08:32 Apixaban 2.5 Mg Tablet PO 2.5 mg Q12HR [facility] Administration Cyanocobalamin 1,000 mcg 09/07/22 09:00 09/11/22 08:32 Cyanocobalamin 1,000 Mcg Tablet PO 1,000 mcg DAILY [facility] Administration Dextrose 12.5 gm 09/09/22 08:05 Dextrose 50% 25 Gm/50 Ml Syringe IV PUSH PRN PRN Hypoglycemia Protocol Folic Acid 1 mg 09/07/22 09:00 09/11/22 08:33 Folic Acid 1 Mg Tablet PO 1 mg DAILY [facility] Administration Furosemide 40 mg 09/10/22 09:00 09/11/22 08:33 Furosemide Inj 40 Mg/4 Ml Vial IV PUSH 40 mg DAILY [facility] Administration Gabapentin 1,200 mg 09/06/22 09:00 09/11/22 08:32 Gabapentin 400 Mg Capsule PO 1,200 mg DAILY [facility] Administration Glucagon 1 mg 09/09/22 08:05 Glucagon For Inj 1 Mg Vial IM PRN PRN Hypoglycemia Protocol Glucose 15 gm 09/09/22 08:05 Glucose Oral Gel 15 Gm Of Glucse In 37.5 Gm Tube PO PRN PRN Hypoglycemia Protocol Dextrose 1,000 mls @ 100 mls/hr 09/09/22 08:05 Dextrose 5% 1,000 Ml IVPB PRN PRN Hypoglycemia Protocol Insulin Aspart 5 units 09/06/22 08:00 09/11/22 12:08 Insulin Aspart (*Bkc) 100 Units/Ml 0.05 units/kg (5 units) 5 units SUB-Q Administration [facility] Insulin Glargine 10 units 09/10/22 22:05 09/11/22 03:24 Insulin Glargine (*Bkc) 100 Units/Ml SUB-Q Not Given [facility] Metoprolol Tartrate 25 mg 09/10/22 21:00 09/11/22 08:33 Metoprolol Tartrate 25 Mg Tablet PO 25 mg Q12HR [facility] Administration Miscellaneous Information 1 each 09/06/22 00:01 (Cholecalciferol (Vitamin D3) 1 Cap)Needs Strength XX 10/06/22 00:00 [facility] Miscellaneous Information 1 each 09/06/22 00:01 Nonformulary Drug (Dapagliflozin [Farxiga] 10 Mg Tablet)Can Patient Use From Home? XX 10/06/22 00:00 [facility] Miscellaneous Information 1 each 09/06/22 00:01 Acra 3 With Vitamin E Needs Strength Clarified. 2 Med Combination With Only One Strength XX 10/06/22 00:00 [facility] Naloxone HCl 0.1 mg 09/06/22 19:37 Naloxone Hcl 0.4 Mg/Ml Vial IV PUSH Q2M PRN Opiate Reversal Non-Formulary Medication 1 cap 09/07/22 09:00 Cholecalciferol (Vitamin D3) PO 10/07/22 08:59 D
--- NOTE | 2022-09-11 15:17 | PM.IMPN ---
Progress Note: A&P Assessment and Plan (1) Closed hip fracture: Code(s): S72.009A - Fracture of unspecified part of neck of unspecified femur, initial encounter for closed fracture Status: Acute Assessment and Plan: status post femoral neck fracture repair with screw fixation, doing well, pain controlled Orthopedic on board rehabilitation when medically cleared (2) T2DM (type 2 diabetes mellitus): Code(s): E11.9 - Type 2 diabetes mellitus without complications Status: Acute Assessment and Plan: accuchecks, SSI, monitor BG, a1c is 8.1 Hyperglycemic On dapagliflozin Restart (3) UTI (urinary tract infection): Code(s): N39.0 - Urinary tract infection, site not specified Status: Ruled-out Assessment and Plan: urine culture showed mixed genital kym, no abx, no UTI noted Plan # atrial fibrillation intermittent paroxysmal ;CTA with no evidence of PE no focal pneumonia. Small pleural effusion with compressive atelectasis at the lung bases.Venous duplex negative for DVT. Echo with LVEF 60-65% no significant valvular disease. Chads Vasc score 3 given 80s high blood pressure and diabetes but long-term anticoagulation avoided due to recent hip surgery and fracture. Thirty day event monitor at discharge currently on metoprolol. He went into atrial fibrillation again. Discussed anticoagulation with the patient and family. Will increase Eliquis to 5 mg b.i.d. is spontaneously converted back to sinus rhythm. Will continue to monitor on telemetry today. If remains stable and sinus rhythm will plan to discharge him to rehabilitation tomorrow . TSH is normal # Soft tissue nodule anterior chest wall 1.4 cm to consider percutaneous biopsy. This will be followed up as an outpatient basis. # DVT prophylaxis with Eliquis # GI prophylaxis not indicated # Code status full code # History of DVT in arm in the past Subjective Date/time seen: 09/11/22 15:17 Interval history: No overnight events. family medicine physician assistant showed atrial fibrillation rapid ventricular rate throughout the day yesterday spontaneously converted to sinus rhythm. On higher dose of metoprolol. Breathing is better states. Discussed anticoagulation with the patient and the family at bedside. Review of Systems Review of Systems: All systems reviewed & are unremarkable except as noted in HPI and below Exam Narrative: General: No acute distress, alert and oriented per baseline HEENT: Atraumatic, normocephalic, mucous membranes moist CV: Regular rate and rhythm telemetry reviewed, S1, S2 Lungs: Clear to auscultation bilaterally, no rales or crackles noted, no wheezes, good air entry Abdomen: Soft, nontender, nondistended Extremities: Normal to inspection Skin: No rashes noted, no lesions or wounds seen Psych: Euthymic, normal affect Objective Data Vital Signs Vital Signs: Vital Signs - 24 hr 09/10/22 16:00 09/10/22 22:00 09/10/22 20:20 Temperature 97.6 F Pulse Rate 109 H 84 112 H Respiratory Rate 18 Blood Pressure 137/58 L Pulse Oximetry 98 Oxygen Delivery 09/11/22 00:00 09/11/22 04:00 09/11/22 06:00 Temperature 98 F Pulse Rate 84 76 79 Respiratory Rate 20 Blood Pressure 183/100 H Pulse Oximetry 97 Oxygen Delivery 09/11/22 08:33 09/11/22 08:30 09/11/22 14:00 Temperature 97.3 F L Pulse Rate 78 75 Respiratory Rate 20 Blood Pressure 134/62 Pulse Oximetry 96 Oxygen Delivery Room Air 09/11/22 08:00 Temperature Pulse Rate 73 Respiratory Rate Blood Pressure Pulse Oximetry Oxygen Delivery Intake/Output Intake/Output: Intake & Output 09/08/22 09/09/22 09/10/22 09/11/22 23:59 23:59 23:59 23:59 Intake Total 1720 1470 1200 850 Output Total 1276 2625 2075 0 Balance 644 -7703 -006 850 Meds/Results Medications: Active Medications Generic Name Dose Route Start Last Admin Trade Name Freq PRN Reason Stop Dose Admin Acet
[2022-09-11] MEDS: OMEGA 3 POLYUNSAT FATTY ACIDS 1 GM CAP 2 GM PO (16:31)
[2022-09-11 16:44] LABS: Glucose Point of Care 350 mg/dl (65-105)
[2022-09-11] MEDS: INSULIN GLARGINE (*BKC) 100 UNITS/ML 10 UNITS SUB-Q (20:20)
[2022-09-11] MEDS: APIXABAN 5 MG TABLET PO (20:20)
[2022-09-11 20:27] LABS: Glucose Point of Care 290 mg/dl (65-105)
[2022-09-12] VITALS (13 sets, daily range): BP systolic 91–174; BP diastolic 52–86; PULSE 40–151; RESP 14–18; TEMP 35.5–36; O2SAT 96–98
--- NOTE | 2022-09-12 06:45 | PM.PNORT ---
Subjective Subjective Date/Time Seen: 09/12/22 06:45 Postop day 5 patient is alert. Pain is well controlled. Dressing is dry. Care coordination is working on rehab facility placement. They are working on adjusting his metoprolol, he was kept overnight last night and hopefully will be transferred today. Objective Data Vital Signs Vital Signs: Vital Signs - 24 hr 09/11/22 08:33 09/11/22 08:30 09/11/22 14:00 Temperature 36.3 C L Pulse Rate 78 75 Respiratory Rate 20 Blood Pressure 134/62 Pulse Oximetry 96 Oxygen Delivery Room Air 09/11/22 08:00 09/11/22 12:00 09/11/22 16:00 Temperature Pulse Rate 73 77 73 Respiratory Rate Blood Pressure Pulse Oximetry Oxygen Delivery 09/11/22 20:22 09/11/22 20:00 09/11/22 20:00 Temperature 35.9 C L Pulse Rate 76 75 76 Respiratory Rate 18 Blood Pressure 154/82 H Pulse Oximetry 98 Oxygen Delivery 09/12/22 00:00 09/12/22 04:00 09/12/22 06:00 Temperature 35.5 C L Pulse Rate 70 73 74 Respiratory Rate 14 Blood Pressure 174/86 H Pulse Oximetry 98 Oxygen Delivery Intake/Output Intake/Output: Intake & Output 09/09/22 09/10/22 09/11/22 09/12/22 23:59 23:59 23:59 23:59 Intake Total 1470 1200 1540 550 Output Total 2625 2075 1125 1050 Balance -1155 -875 415 -500 Meds/Results Medications: Active Medications Generic Name Dose Route Start Last Admin Trade Name Coy PRN Reason Stop Dose Admin Acetaminophen 1,000 mg 09/06/22 20:00 09/12/22 02:12 Acetaminophen 500 Mg Tablet PO Not Given Q6H [facility] Allopurinol 200 mg 09/06/22 08:00 09/11/22 08:33 Allopurinol 100 Mg Tablet PO 200 mg DAILY@0800 [facility] Administration Apixaban 5 mg 09/11/22 21:00 09/11/22 20:20 Apixaban 5 Mg Tablet PO 5 mg Q12HR [facility] Administration Ascorbic Acid 500 mg 09/12/22 09:00 Ascorbic Acid 500 Mg Tablet PO DAILY [facility] Cyanocobalamin 1,000 mcg 09/07/22 09:00 09/11/22 08:32 Cyanocobalamin 1,000 Mcg Tablet PO 1,000 mcg DAILY [facility] Administration Dextrose 12.5 gm 09/09/22 08:05 Dextrose 50% 25 Gm/50 Ml Syringe IV PUSH PRN PRN Hypoglycemia Protocol Empagliflozin 25 mg 09/12/22 09:00 Empagliflozin 25 Mg Tablet PO DAILY LUZ Fish Oil 2 gm 09/11/22 17:00 09/11/22 16:31 [place] 3 Polyunsat Fatty Acids 1 Gm Cap PO 2 gm BID LUZ Administration Folic Acid 1 mg 09/07/22 09:00 09/11/22 08:33 Folic Acid 1 Mg Tablet PO 1 mg DAILY [facility]Z Administration Gabapentin 1,200 mg 09/06/22 09:00 09/11/22 08:32 Gabapentin 400 Mg Capsule PO 1,200 mg DAILY [facility] Administration Glucagon 1 mg 09/09/22 08:05 Glucagon For Inj 1 Mg Vial IM PRN PRN Hypoglycemia Protocol Glucose 15 gm 09/09/22 08:05 Glucose Oral Gel 15 Gm Of Glucse In 37.5 Gm Tube PO PRN PRN Hypoglycemia Protocol Dextrose 1,000 mls @ 100 mls/hr 09/09/22 08:05 Dextrose 5% 1,000 Ml IVPB PRN PRN Hypoglycemia Protocol Insulin Aspart 5 units 09/06/22 08:00 09/11/22 16:40 Insulin Aspart (*Bkc) 100 Units/Ml 0.05 units/kg (5 units) 5 units SUB-Q Administration [facility] Insulin Glargine 10 units 09/10/22 22:05 09/11/22 20:20 Insulin Glargine (*Bkc) 100 Units/Ml SUB-Q 10 units [facility] Administration Metformin HCl 2,000 mg 09/12/22 09:00 Metformin Hcl Xr 500 Mg Tab.Sr.24h PO DAILY [facility] Metoprolol Tartrate 25 mg 09/10/22 21:00 09/11/22 20:22 Metoprolol Tartrate 25 Mg Tablet PO 25 mg Q12HR [facility] Administration Naloxone HCl 0.1 mg 09/06/22 19:37 Naloxone Hcl 0.4 Mg/Ml Vial IV PUSH Q2M PRN Opiate Reversal Ondansetron HCl 4 mg 09/05/22 21:12 09/05/22 22:57 Ondansetron Inj 4 Mg/2 Ml Vial IV PUSH 4 mg Q4H PRN Administration Nausea Oxycodone HCl 5 mg 09/06/22 19:37 09/09/22 15:07 Oxycodone Hcl (*Crx) 5 Mg Tab Ir PO 5 mg Q4H PRN Administration Pain Rated
[2022-09-12 06:50] LABS: Basophils Percent Auto 0.3 % (0.2-1.2); Eosinophils Absolute Auto 0.2 K/mm3 (0-0.3); Eosinophils Percent Auto 4.6 % (0-4.4); Hematocrit 29.5 % (42.0-52.0); Hemoglobin 9.9 g/dL (14.0-18.0); Immature Granulocyte Absolute 0.02 K/mm3 (0.00-0.031); Immature Granulocyte Percent A 0.6 % (0-0.5); Lymphocytes Absolute Auto 0.73 K/mm3 (0.9-3.2); Lymphocytes Percent Auto 20.8 % (18.3-44.2); Mean Corpuscular HGB Conc 33.6 g/dl (32-36); Mean Corpuscular Hemoglobin 33.9 pg (26-34); Mean Platelet Volume 9.6 fl (7.4-10.4); Monocytes Absolute Auto 0.3 K/mm3 (0.1-0.6); Monocytes Percent Auto 8.3 % (2.6-8.5); Neutrophils Absolute Auto 2.3 K/mm3 (1.3-6.7); Neutrophils Percent Auto 65.4 % (45.5-73.1); Platelet Count Result 151 k/mm3 (150-375); Red Blood Count 2.92 M/mm3 (4.6-6.20); Red Cell Distribution Width 14.6 % (11.5-14.5); White Blood Count 3.5 K/mm3 (4.5-10.0)
[2022-09-12 06:54] LABS: Alanine Aminotransferase 23 U/L (6-50); Albumin Level 3.5 g/dL (3.5-5.1); Alkaline Phosphatase 104 U/L (38-126); Anion Gap 5 mmol/L (8-16); Aspartate Amino Transferase 21 U/L (17-59); Bilirubin,Total 0.5 mg/dL (0.2-1.3); Blood Urea Nitrogen 22 mg/dL (9-20); Calcium 8.4 mg/dL (8.4-10.2); Carbon Dioxide 28 mmol/L (22-30); Chloride 97 mmol/L (98-107); Estimated CRCL calculation 78 ml/min; Estimated Glomerular Filt Rate > 60; Glucose 253 mg/dL (65-110); Magnesium 1.8 mg/dL (1.6-2.3); Potassium 4.2 mmol/L (3.4-5.0); Sodium 130 mmol/L (137-145)
[2022-09-12] MEDS: oxyCODONE HCL (*CRX) 5 MG TAB IR PO (06:58)
[2022-09-12 07:45] LABS: Glucose Point of Care 275 mg/dl (65-105)
[2022-09-12] MEDS: INSULIN ASPART (*BKC) 100 UNITS/ML SUB-Q ×3 (08:34→17:48)
--- NOTE | 2022-09-12 09:53 | PCNWS ---
Weekly nutritional screen. Patient is tolerating current diabetic consistent carb diet with adequate intake at 100% most all meals. No weight loss reported. No nutritional needs at this time.
[2022-09-12] MEDS: ACETAMINOPHEN 500 MG TABLET 1000 MG PO ×3 (10:44→21:59)
[2022-09-12] MEDS: POTASSIUM CHLORIDE 20 MEQ TABLET.ER PO (10:44)
[2022-09-12] MEDS: allopurinoL 100 MG TABLET 200 MG PO (10:44)
[2022-09-12] MEDS: APIXABAN 5 MG TABLET PO ×2 (10:45→21:59)
[2022-09-12] MEDS: SENNA/DOCUSATE SODIUM TABLET 2 TAB PO ×2 (10:45→16:56)
[2022-09-12] MEDS: metFORMIN HCL XR 500 MG TAB.SR.24H 2000 MG PO (10:46)
[2022-09-12] MEDS: GABAPENTIN 400 MG CAPSULE 1200 MG PO (10:46)
[2022-09-12] MEDS: CYANOCOBALAMIN 1,000 MCG TABLET 1000 MCG PO (10:47)
[2022-09-12] MEDS: ASCORBIC ACID 500 MG TABLET PO (10:47)
[2022-09-12] MEDS: polyethylene glycoL 3350 17 GM POWD.PACK PO (10:47)
[2022-09-12] MEDS: EMPAGLIFLOZIN 25 MG TABLET PO (10:47)
[2022-09-12] MEDS: FOLIC ACID 1 MG TABLET PO (10:48)
[2022-09-12] MEDS: PANTOPRAZOLE 40 MG TABLET PO ×2 (10:48→16:56)
[2022-09-12] MEDS: ROSUVASTATIN 10 MG TABLET PO (10:48)
[2022-09-12] MEDS: OMEGA 3 POLYUNSAT FATTY ACIDS 1 GM CAP 2 GM PO ×2 (10:48→16:56)
[2022-09-12] MEDS: CHOLECALCIFEROL 1,000 UNITS TABLET 1000 UNITS PO (10:48)
[2022-09-12] MEDS: METOPROLOL TARTRATE 25 MG TABLET PO ×3 (10:48→21:59)
[2022-09-12 11:17] LABS: Glucose Point of Care 378 mg/dl (65-105)
--- NOTE | 2022-09-12 12:04 | PM.IMPN ---
Progress Note: A&P Assessment and Plan (1) Closed hip fracture: Code(s): S72.009A - Fracture of unspecified part of neck of unspecified femur, initial encounter for closed fracture Status: Acute Assessment and Plan: status post femoral neck fracture repair with screw fixation, doing well, pain controlled Orthopedic on board rehabilitation when medically cleared (2) T2DM (type 2 diabetes mellitus): Code(s): E11.9 - Type 2 diabetes mellitus without complications Status: Acute Assessment and Plan: accuchecks, SSI, monitor BG, a1c is 8.1 Hyperglycemic On dapagliflozin Restart (3) UTI (urinary tract infection): Code(s): N39.0 - Urinary tract infection, site not specified Status: Ruled-out Assessment and Plan: urine culture showed mixed genital kym, no abx, no UTI noted Plan # atrial fibrillation intermittent paroxysmal ;CTA with no evidence of PE no focal pneumonia. Small pleural effusion with compressive atelectasis at the lung bases.Venous duplex negative for DVT. Echo with LVEF 60-65% no significant valvular disease. Chads Vasc score 3 given 80s high blood pressure and diabetes but long-term anticoagulation avoided due to recent hip surgery and fracture. Thirty day event monitor at discharge currently on metoprolol. He went into atrial fibrillation again. Discussed anticoagulation with the patient and family. Will increase Eliquis to 5 mg b.i.d. is spontaneously converted back to sinus rhythm. Will continue to monitor on telemetry. Back to AFib rhythm again. Increase metoprolol dose. Re-consult Cardiology. TSH is normal # Soft tissue nodule anterior chest wall 1.4 cm to consider percutaneous biopsy. This will be followed up as an outpatient basis. # DVT prophylaxis with Eliquis # GI prophylaxis not indicated # Code status full code # History of DVT in arm in the past Subjective Date/time seen: 09/12/22 12:04 Interval history: patient remained sinus rhythm all day yesterday and went into atrial fibrillation with rapid ventricular rate a a.m. this morning. He denies any chest pain or shortness of breath. No fever chills working with therapy. Review of Systems Review of Systems: All systems reviewed & are unremarkable except as noted in HPI and below Exam Narrative: General: No acute distress, alert and oriented per baseline HEENT: Atraumatic, normocephalic, mucous membranes moist CV: Tachycardic irregularly irregular rhythm AFib on telemetry, S1, S2 Lungs: Clear to auscultation bilaterally, no rales or crackles noted, no wheezes, good air entry Abdomen: Soft, nontender, nondistended Extremities: Normal to inspection Skin: No rashes noted, no lesions or wounds seen Psych: Euthymic, normal affect Objective Data Vital Signs Vital Signs: Vital Signs - 24 hr 09/11/22 14:00 09/11/22 16:00 09/11/22 20:22 Temperature 97.3 F L Pulse Rate 75 73 76 Respiratory Rate 20 Blood Pressure 134/62 Pulse Oximetry 96 09/11/22 20:00 09/11/22 20:00 09/12/22 00:00 Temperature 96.7 F L Pulse Rate 75 76 70 Respiratory Rate 18 Blood Pressure 154/82 H Pulse Oximetry 98 09/12/22 04:00 09/12/22 06:00 09/12/22 10:48 Temperature 96 F L Pulse Rate 73 74 129 H Respiratory Rate 14 Blood Pressure 174/86 H Pulse Oximetry 98 Intake/Output Intake/Output: Intake & Output 09/09/22 09/10/22 09/11/22 09/12/22 23:59 23:59 23:59 23:59 Intake Total 1470 1200 1540 910 Output Total 2626 2071 1125 1050 [place] [id number] [facility] 415 -140 Meds/Results Medications: Active Medications Generic Name Dose Route Start Last Admin Trade Name Pericoq PRN Reason Stop Dose Admin Acetaminophen 1,000 mg 09/06/22 20:00 09/12/22 10:44 Acetaminophen 500 Mg Tablet PO 1,000 mg Q6H [facility] Administration Allopurinol 200 mg 09/06/22 08:00 09/12/22 10:44 Allopurinol 100 Mg Tablet PO 200 mg DAILY@0800 [facility] Administration A
[2022-09-12 16:29] LABS: Glucose Point of Care 204 mg/dl (65-105)
[2022-09-12] MEDS: INSULIN GLARGINE (*BKC) 100 UNITS/ML 18 UNITS SUB-Q (22:00)
[2022-09-12 22:16] LABS: Glucose Point of Care 202 mg/dl (65-105)
[2022-09-13] VITALS (8 sets, daily range): BP systolic 119–156; BP diastolic 64–76; PULSE 64–71; RESP 16–18; TEMP 35.8–36.1; O2SAT 94–96
--- NOTE | 2022-09-13 04:42 | PC.NURSE ---
Pt has been resting comfortably with no complaints of pain at this time. Pt expresses no other needs at this time. Pt participated and contributed in plan of care for the shift. Will continue to monitor pt.
[2022-09-13] MEDS: METOPROLOL TARTRATE 25 MG TABLET PO ×2 (06:11→14:21)
[2022-09-13 06:59] LABS: Basophils Percent Auto 0.6 % (0.2-1.2); Eosinophils Absolute Auto 0.2 K/mm3 (0-0.3); Eosinophils Percent Auto 4.5 % (0-4.4); Hematocrit 31.8 % (42.0-52.0); Hemoglobin 10.7 g/dL (14.0-18.0); Immature Granulocyte Absolute 0.03 K/mm3 (0.00-0.031); Immature Granulocyte Percent A 0.8 % (0-0.5); Lymphocytes Absolute Auto 0.75 K/mm3 (0.9-3.2); Mean Corpuscular HGB Conc 33.6 g/dl (32-36); Mean Corpuscular Hemoglobin 34.2 pg (26-34); Mean Corpuscular Volume 101.6 fl (80-100); Mean Platelet Volume 9.4 fl (7.4-10.4); Monocytes Absolute Auto 0.3 K/mm3 (0.1-0.6); Monocytes Percent Auto 8.7 % (2.6-8.5); Neutrophils Absolute Auto 2.3 K/mm3 (1.3-6.7); Neutrophils Percent Auto 64.4 % (45.5-73.1); Platelet Count Result 174 k/mm3 (150-375); Red Blood Count 3.13 M/mm3 (4.6-6.20); White Blood Count 3.6 K/mm3 (4.5-10.0)
[2022-09-13 07:10] LABS: Alanine Aminotransferase 22 U/L (6-50); Albumin Level 3.8 g/dL (3.5-5.1); Alkaline Phosphatase 103 U/L (38-126); Anion Gap 6 mmol/L (8-16); Aspartate Amino Transferase 21 U/L (17-59); Bilirubin,Total 0.6 mg/dL (0.2-1.3); Blood Urea Nitrogen 24 mg/dL (9-20); Calcium 8.7 mg/dL (8.4-10.2); Carbon Dioxide 29 mmol/L (22-30); Chloride 100 mmol/L (98-107); Estimated CRCL calculation 70 ml/min; Estimated Glomerular Filt Rate > 60; Glucose 188 mg/dL (65-110); Potassium 4.3 mmol/L (3.4-5.0); Sodium 135 mmol/L (137-145)
[2022-09-13 08:10] LABS: Glucose Point of Care 216 mg/dl (65-105)
[2022-09-13] MEDS: ACETAMINOPHEN 500 MG TABLET 1000 MG PO ×2 (08:18→14:21)
[2022-09-13] MEDS: FOLIC ACID 1 MG TABLET PO (08:18)
[2022-09-13] MEDS: OMEGA 3 POLYUNSAT FATTY ACIDS 1 GM CAP 2 GM PO (08:18)
[2022-09-13] MEDS: allopurinoL 100 MG TABLET 200 MG PO (08:18)
[2022-09-13] MEDS: CYANOCOBALAMIN 1,000 MCG TABLET 1000 MCG PO (08:18)
[2022-09-13] MEDS: ROSUVASTATIN 10 MG TABLET PO (08:18)
[2022-09-13] MEDS: PANTOPRAZOLE 40 MG TABLET PO (08:18)
[2022-09-13] MEDS: CHOLECALCIFEROL 1,000 UNITS TABLET 1000 UNITS PO (08:19)
[2022-09-13] MEDS: GABAPENTIN 400 MG CAPSULE 1200 MG PO (08:19)
[2022-09-13] MEDS: APIXABAN 5 MG TABLET PO (08:19)
[2022-09-13] MEDS: POTASSIUM CHLORIDE 20 MEQ TABLET.ER PO (08:19)
[2022-09-13] MEDS: EMPAGLIFLOZIN 25 MG TABLET PO (08:19)
[2022-09-13] MEDS: ASCORBIC ACID 500 MG TABLET PO (08:20)
[2022-09-13] MEDS: metFORMIN HCL XR 500 MG TAB.SR.24H 2000 MG PO (08:20)
[2022-09-13] MEDS: INSULIN ASPART (*BKC) 100 UNITS/ML SUB-Q ×2 (08:22→12:04)
[2022-09-13 11:59] LABS: Glucose Point of Care 192 mg/dl (65-105)
--- NOTE | 2022-09-13 12:26 | PM.IMPN ---
Progress Note: A&P Assessment and Plan (1) Closed hip fracture: Code(s): S72.009A - Fracture of unspecified part of neck of unspecified femur, initial encounter for closed fracture Status: Acute Assessment and Plan: status post femoral neck fracture repair with screw fixation, doing well, pain controlled Orthopedic on board rehabilitation when medically cleared (2) T2DM (type 2 diabetes mellitus): Code(s): E11.9 - Type 2 diabetes mellitus without complications Status: Acute Assessment and Plan: accuchecks, SSI, monitor BG, a1c is 8.1 Hyperglycemic On dapagliflozin Restart (3) UTI (urinary tract infection): Code(s): N39.0 - Urinary tract infection, site not specified Status: Ruled-out Assessment and Plan: urine culture showed mixed genital kym, no abx, no UTI noted Plan DVT prophylaxis with Eliquis GI prophylaxis with PPI Code status full code Subjective Date/time seen: 09/13/22 12:26 Interval history: No overnight events noted. No chest pain or shortness of breath. No nausea, vomiting or diarrhea. No fevers or chills. Stable on room air Review of Systems Review of Systems: 12 point review of systems was assessed and was negative except as noted in the HPI Exam Narrative: General: No acute distress, alert and oriented per baseline HEENT: Atraumatic, normocephalic, mucous membranes moist CV: Regular rate and rhythm, S1, S2 Lungs: Clear to auscultation bilaterally, no rales or crackles noted, no wheezes, good air entry Abdomen: Soft, nontender, nondistended Extremities: Normal to inspection Skin: No rashes noted, no lesions or wounds seen Psych: Euthymic, normal affect Objective Data Vital Signs Vital Signs: Vital Signs - 24 hr 09/12/22 14:00 09/12/22 16:38 09/12/22 16:00 Temperature 96.8 F L Pulse Rate 40 L 102 H 151 H Respiratory Rate 18 Blood Pressure 91/52 L 104/64 Pulse Oximetry 98 98 Oxygen Delivery 09/12/22 21:59 09/12/22 21:59 09/12/22 20:00 Temperature 96.2 F L Pulse Rate 74 73 Respiratory Rate 18 Blood Pressure 130/62 Pulse Oximetry 96 Oxygen Delivery Room Air 09/13/22 04:02 09/12/22 20:02 09/13/22 00:04 Temperature Pulse Rate 65 75 66 Respiratory Rate Blood Pressure Pulse Oximetry Oxygen Delivery 09/13/22 06:11 09/13/22 06:00 09/13/22 08:00 Temperature 96.4 F L Pulse Rate 66 68 64 Respiratory Rate 16 Blood Pressure 156/76 H Pulse Oximetry 94 Oxygen Delivery Intake/Output Intake/Output: Intake & Output 09/10/22 09/11/22 09/12/22 09/13/22 23:59 23:59 23:59 23:59 Intake Total 1200 1540 1790 300 Output Total 2075 1125 1050 1425 Balance -875 415 450 -1125 Meds/Results Medications: Active Medications Generic Name Dose Route Start Last Admin Trade Name Freq PRN Reason Stop Dose Admin Acetaminophen 1,000 mg 09/06/22 20:00 09/13/22 08:18 Acetaminophen 500 Mg Tablet PO 1,000 mg Q6H [facility] Administration Allopurinol 200 mg 09/06/22 08:00 09/13/22 08:18 Allopurinol 100 Mg Tablet PO 200 mg DAILY@0800 [facility] Administration Apixaban 5 mg 09/11/22 21:00 09/13/22 08:19 Apixaban 5 Mg Tablet PO 5 mg Q12HR [facility] Administration Ascorbic Acid 500 mg 09/12/22 09:00 09/13/22 08:20 Ascorbic Acid 500 Mg Tablet PO 500 mg DAILY [facility] Administration Cyanocobalamin 1,000 mcg 09/07/22 09:00 09/13/22 08:18 Cyanocobalamin 1,000 Mcg Tablet PO 1,000 mcg DAILY [facility] Administration Dextrose 12.5 gm 09/09/22 08:05 Dextrose 50% 25 Gm/50 Ml Syringe IV PUSH PRN PRN Hypoglycemia Protocol Empagliflozin 25 mg 09/12/22 09:00 09/13/22 08:19 Empagliflozin 25 Mg Tablet PO 25 mg DAILY [facility] Administration Fish Oil 2 gm 09/11/22 17:00 09/13/22 08:18 [place] 3 Polyunsat Fatty Acids 1 Gm Cap PO 2 gm BID [facility] Administration Folic Acid 1 mg 09/07/22 09:00 09/13/22 08:18 Folic Acid 1
--- NOTE | 2022-09-13 12:34 | PM.DS ---
DS: Admitting Diagnosis Discharge Date September 13, 2022 Admitting Diagnosis Hip fracture DS: Discharge Diagnosis Discharge Diagnosis (1) Closed hip fracture: Code(s): S72.009A - Fracture of unspecified part of neck of unspecified femur, initial encounter for closed fracture Status: Acute Assessment and Plan: status post femoral neck fracture repair with screw fixation, doing well, pain controlled Orthopedic on board rehabilitation when medically cleared (2) T2DM (type 2 diabetes mellitus): Code(s): E11.9 - Type 2 diabetes mellitus without complications Status: Acute Assessment and Plan: accuchecks, SSI, monitor BG, a1c is 8.1 Hyperglycemic On dapagliflozin Restart (3) UTI (urinary tract infection): Code(s): N39.0 - Urinary tract infection, site not specified Status: Ruled-out Assessment and Plan: urine culture showed mixed genital kym, no abx, no UTI noted Plan DVT prophylaxis with Eliquis GI prophylaxis with PPI Code status full code DS: Summary Hospital Course Hospital Course: 72-year-old male with past medical history significant for type diabetes mellitus, dyslipidemia, GERD, gout.? Patient suffered a mechanical fall was able to get back up on his own however had significant pain and difficulty ambulating when the running errands until finally going home when pain was unbearable decided to call EMS and come to the hospital for x-ray . patient denies any loss of consciousness he has been his usual state of health up until this point.? In emergency room a urinalysis shows some WBCs present in the urine,? hip x-ray was significant for femoral neck fracture. Orthopedic surgery was consulted. Patient was started on Rocephin for possible UTI. Accu-Cheks and sliding scale insulin were initiated. Patient was taken to the OR for femoral neck fracture fixation. Patient had an episode of atrial fibrillation and an echo was ordered showing an EF of 60-65% with no significant valvular abnormalities, no diastolic dysfunction. Patient did well postoperatively in regards to the hip surgery. He worked with therapy extensively. PT recommended rehab at discharge. A1c was noted to be 8.1. Patient was started on long-acting insulin as well as mealtime coverage. Urine culture came back negative, no UTI noted, antibiotics discontinued. Cardiology was consulted for atrial fibrillation. They recommended against long-term anticoagulation recommended an event monitor at discharge. Patient was able to be rate controlled on metoprolol and Eliquis was able to be started. TSH was normal. Nodular soft tissue noted in the anterior chest wall, will need outpatient follow-up, possibly biopsy. Time Spent with Patient Time attestation: Total time spent providing and/or coordinating discharge services: Exam Narrative: General: No acute distress, alert and oriented per baseline HEENT: Atraumatic, normocephalic, mucous membranes moist CV: Regular rate and rhythm, S1, S2 Lungs: Clear to auscultation bilaterally, no rales or crackles noted, no wheezes, good air entry Abdomen: Soft, nontender, nondistended Extremities: Normal to inspection Skin: No rashes noted, no lesions or wounds seen Psych: Euthymic, normal affect DS: Data Data Completed and Pending Labs on day of discharge: Labs from last 24 hours 09/13/22 09/13/22 09/13/22 11:55 08:07 06:29 WBC RBC Hgb Hct MCV MCH MCHC RDW Plt Count MPV Immature Gran % (Auto) Neut % (Auto) Lymph % (Auto) [place] % (Auto) Eos % (Auto) Baso % (Auto) Lymph # (Auto) [place] # (Auto) Eos # (Auto) Baso # (Auto) Abs Immat Gran (auto) Absolute Neuts (auto) Absolute Nucleated RBC Nucleated RBC % Sodium 135 L Potassium 4.3 Chloride 100 Carbon Dioxide 29 Anion Gap 6 L BUN 24 H Creatinine 0.90 Estim Creat Clear Calc 70 Estimated GFR
== END 2022-09-13 15:40 | DRG 482 ==
LOC: ANHED 21:12 → ANH3MEDSUR 22:48
PROVIDERS: Internal Medicine; Internal Medicine Cardiovascular Disease; Orthopaedic Surgery; Admitting Provider Internal Medicine; Emergency Provider Nurse Practitioner Family; PCP Internal Medicine; Visit Provider Student in an Organized Health Care Education/Training Program
PROC: 0QS634Z Reposition Right Upper Femur with Internal Fixation Device, Percutaneous Approach (ICD-10-PCS; principal; 2022-09-06 16:30)
DX: S72.011A Unspecified intracapsular fracture of right femur, initial encounter for closed fracture (principal); E78.5 Hyperlipidemia, unspecified; K21.9 Gastro-esophageal reflux disease without esophagitis; J44.9 Chronic obstructive pulmonary disease, unspecified; I10 Essential (primary) hypertension; E11.42 Type 2 diabetes mellitus with diabetic polyneuropathy; I48.0 Paroxysmal atrial fibrillation; Z20.822 Contact with and (suspected) exposure to COVID-19; Z86.718 Personal history of other venous thrombosis and embolism; Z87.891 Personal history of nicotine dependence; Z79.84 Long term (current) use of oral hypoglycemic drugs; Z79.899 Other long term (current) drug therapy; Z88.0 Allergy status to penicillin; Z88.1 Allergy status to other antibiotic agents; W01.0XXA Fall on same level from slipping, tripping and stumbling without subsequent striking against object, initial encounter; Z92.21 Personal history of antineoplastic chemotherapy; Z85.72 Personal history of non-Hodgkin lymphomas
CPT/HCPCS: 36415; 36600; 71275; 72192; 73502; 80048; 80053; 81001; 82306; 82805; 82948; 83036; 83735; 83880; 84436; 84443; 84484; 85025; 85027; 85055; 85380; 85610; 85730; 86850; 86900; 86901; 87086; 87088; 93005; 93306; 93970; 97110; 97162; 97165; 97530; 97535; 99199; 99285; A9270; C1713; C1769; C8929; J0690; J1100; J1170; J1815; J1940; J2405; J2704; J3010; J3370; J7030; J7120; Q9957; Q9967; U0003; U0005

== ENCOUNTER 2023-01-10 00:27 | Day surgery (SDC) | payer MEDICARE, SELFPAY ==
[2023-01-09 16:29] VITALS: BMI 30.9
[2023-01-10] VITALS (11 sets, daily range): BP systolic 109–131; BP diastolic 60–81; PULSE 77–105; RESP 10–16; TEMP 36.2; O2SAT 92–98; BMI 30.4
--- NOTE | 2023-01-10 09:03 | ECG_ITS ---
Measurements Intervals [place] Rate: 90 P: [place]: 0 QRS: -28 QRSD: 96 T: 18 QT: 342 QTc: 420 Interpretive Statements ATRIAL FIBRILLATION WITH ABERRANT CONDUCTION OR VENTRICULAR PREMATURE COMPLEXES BORDERLINE LEFT AXIS DEVIATION [QRS AXIS < -20] POOR R-WAVE PROGRESSION ABNORMAL ECG Electronically Signed On 01-10-2023 13:49:27 CDT by Isidoro Bauer M.D.
[2023-01-10 09:26] LABS: Anion Gap 10 mmol/L (8-16); Blood Urea Nitrogen 27 mg/dL (9-20); Calcium 8.9 mg/dL (8.4-10.2); Carbon Dioxide 26 mmol/L (22-30); Chloride 99 mmol/L (98-107); Estimated CRCL calculation 62 ml/min; Estimated Glomerular Filt Rate > 60; Glucose 326 mg/dL (65-110); Potassium 4.4 mmol/L (3.4-5.0); Sodium 135 mmol/L (137-145)
--- NOTE | 2023-01-10 10:14 | WPDMODSED ---
Moderate Sedation Note-Pt Data Patient Data Diagnosis: Atrial fibrillation Present Complaint: Atrial fibrillation Procedure to be performed/Plan: Elective cardioversion Moderate sedation Allergies Allergy/AdvReac Type Severity Reaction Status Date / Time amoxicillin Allergy Unknown Loss of Verified 01/10/23 09:16 Consciousness Penicillins Allergy Unknown Other Verified 01/10/23 09:16 Home Medications Medication Instructions Recorded Confirmed Type allopurinol 100 mg tablet 200 mg PO DAILY 09/06/22 01/09/23 History cyanocobalamin (vitamin B-12) 1,000 mcg PO DAILY 09/06/22 01/09/23 History 1,000 mcg tablet dapagliflozin 10 mg tablet 5 mg PO DAILY 09/06/22 01/09/23 History (Farxiga) folic acid 1 mg tablet 1 mg PO DAILY 09/06/22 01/09/23 History gabapentin 300 mg capsule 600 mg PO BID 09/06/22 01/09/23 History metformin 500 mg tablet,extended 1,500 mg PO DAILY 09/06/22 01/09/23 History release 24 hr omeprazole 40 mg capsule,delayed 40 mg PO DAILY 09/06/22 01/09/23 History release rosuvastatin 10 mg tablet 10 mg PO DAILY 09/06/22 01/09/23 History ascorbic acid (vitamin C) 1,000 mg 500 mg PO DAILY 09/10/22 01/09/23 History tablet cholecalciferol (vitamin D3) 25 25 mcg PO DAILY 09/10/22 01/09/23 History mcg (1,000 unit) tablet (Vitamin D3) omega 6-jya-xit-fish oil 300 2 cap PO BID 09/10/22 01/09/23 History mg-1,000 mg capsule (Fish Oil) apixaban 5 mg tablet (Eliquis) 5 mg PO Q12HR 1 month #60 tabs 09/13/22 01/09/23 Rx furosemide 40 mg tablet 40 mg PO DAILY 01/09/23 01/09/23 History metoprolol tartrate 25 mg tablet 50 mg PO BID 01/09/23 01/09/23 History naproxen sodium 220 mg tablet 220 mg PO BID PRN Pain 01/09/23 01/09/23 History (Aleve) polyethylene glycol 3350 17 gram 17 g PO QAM PRN Constipation 01/09/23 01/09/23 History oral powder packet (Miralax) semaglutide 3 mg tablet (Rybelsus) 3 mg PO DAILY 01/09/23 01/09/23 History testosterone enanthate 75 mg/0.5 75 mg subcut WEEKLY 01/09/23 01/09/23 History mL subcutaneous auto-injector (Xyosted) Current Medications: Active Medications Sodium Chloride (Normal Saline Iv) 1,000 mls @ 30 mls/hr IV CONT .Q24H LUZ Sedation/Anesthesia: No previous sedation/anesthesia problems (including family history). [facility] Past Medical History Medical History Asthma COPD (chronic obstructive pulmonary disease) DVT (deep venous thrombosis) HTN (hypertension) Hyperlipidemia Lymphoma Obesity Osteoarthritis T2DM (type 2 diabetes mellitus) Family History Family History Father Family history of congenital heart disease Sibling Family history of malignant neoplasm of cervix Diabetes mellitus Grandparent Diabetes mellitus Social History Social History Smoking packs per day: 1 Smoking cigarettes per day: 20.0 Years smoked: 30 Smoking pack-years: 30.00 Smoking status: Former smoker Tobacco type: cigarettes and e-cigarettes/vaping Alcohol intake: current Alcohol use details: once a month Substance use: never Substance use type: does not use Lack of Transportation: No Lack of Food: Never True Current Housing: I Have Housing Concerned About Future Housing: No Difficulty Paying Gas/Electric Bills: No Difficulty Paying for Meds: No Currently Unemployed: No Education: High School Diploma/GED Difficulty w/ Childcare or Family Care: No Living arrangements: with family Spiritual care concerns: No Mod Sed Physical Exam Physical Exam Pre Procedural Exam: Normal: Appearance, Eyes, Ears, Nose, Neck, Throat, Airway, Lungs, Heart Size, Heart Rate, Neuro Exam, Extremities and Skin and Variation: Heart Rhythm (Irregular irregular) Hours since solid foods: 12 Hours since liquid intake: 12 Mallampati Classification: class II [employer]
--- NOTE | 2023-01-10 10:21 | P.PCNCVR_ITS ---
Cardioversion Cardioversion Date of procedure: 01/10/23 Procedure: Elective cardioversion Moderate sedation Pre-op diagnosis: Atrial fibrillation Post-op diagnosis: Same Indications: Atrial fibrillation Description of procedure: After discussing the risks benefits alternatives of the procedure patient agreeable fibula verbal and written informed consent. Risks discussed included skin irritation or burn, stroke, adverse reaction anesthesia, , shocking into a more problematic heart rhythm. After establishing continues surveillance monitor, pulse oxygenation in serial blood pressure assessments, time-out was taken procedure was started Procedure start time 10:16 a.m. Procedure stop time 10:21 a.m. Complications: None Blood loss: None Medications provided a total of 2 mg of Versed and 50 mcg of fentanyl Medications were administered patient was monitored by Joelle Bell RN Sedation: As detailed above. 2 mg of Versed and 50 mcg of fentanyl Findings: 1. Successful lutheran of sinus rhythm from atrial fibrillation using 200 joules of synchronized biphasic energy Conclusion: 1. Successful lutheran of NSR from AF using 200 J of sync biphasic energy 2. Moderate sedation
--- NOTE | 2023-01-10 10:22 | SUR.PHASEII ---
POST CARDIOVERSION EKG COMPLETED. NSR.
--- NOTE | 2023-01-10 10:22 | ECG_ITS ---
Measurements Intervals [place] Rate: 80 P: 55 UT: 186 QRS: -28 QRSD: 105 T: 14 QT: 372 QTc: 431 Interpretive Statements SINUS RHYTHM BORDERLINE LEFT AXIS DEVIATION [QRS AXIS < -20] LOW QRS VOLTAGE IN EXTREMITY LEADS [QRS DEFLECTION < 0.5 mV IN LIMB LEADS] PATTERN CONSISTENT WITH PULMONARY DISEASE ABNORMAL ECG COMPARED TO ECG 01/10/2023 09:03:33 SINUS RHYTHM NOW PRESENT Electronically Signed On 01-10-2023 13:51:57 CDT by Isidoro Bauer M.D.
== END 2023-01-10 11:53 | disposition home or self-care (01) ==
PROVIDERS: PCP Internal Medicine; Visit Provider Internal Medicine Cardiovascular Disease
PROC: 5A2204Z Restoration of Cardiac Rhythm, Single (ICD-10-PCS; principal; 2023-01-10 10:00)
DX: I48.19 Other persistent atrial fibrillation (principal); I11.0 Hypertensive heart disease with heart failure; I50.32 Chronic diastolic (congestive) heart failure; J44.9 Chronic obstructive pulmonary disease, unspecified; E78.5 Hyperlipidemia, unspecified; E11.9 Type 2 diabetes mellitus without complications; Z86.718 Personal history of other venous thrombosis and embolism; Z85.72 Personal history of non-Hodgkin lymphomas; Z87.891 Personal history of nicotine dependence; Z79.84 Long term (current) use of oral hypoglycemic drugs; Z79.01 Long term (current) use of anticoagulants
CPT/HCPCS: 36415; 80048; 83735; 92960; J2250; J3010; J7040

== ENCOUNTER 2023-03-01 01:03 | Day surgery (SDC) | payer MEDICARE, SELFPAY ==
[2023-03-01] VITALS (13 sets, daily range): BP systolic 90–124; BP diastolic 59–81; PULSE 81–105; RESP 12–19; TEMP 36.4; O2SAT 93–95; BMI 29.8
[2023-03-01 09:03] LABS: Basophils Percent Auto 0.2 % (0.2-1.2); Eosinophils Absolute Auto 0.2 K/mm3 (0-0.3); Eosinophils Percent Auto 4.1 % (0-4.4); Hematocrit 40.2 % (42.0-52.0); Hemoglobin 13.5 g/dL (14.0-18.0); Immature Granulocyte Absolute 0.01 K/mm3 (0.00-0.031); Immature Granulocyte Percent A 0.2 % (0-0.5); Lymphocytes Absolute Auto 0.75 K/mm3 (0.9-3.2); Lymphocytes Percent Auto 17.2 % (18.3-44.2); Mean Corpuscular HGB Conc 33.6 g/dl (32-36); Mean Corpuscular Hemoglobin 33.9 pg (26-34); Mean Platelet Volume 9.6 fl (7.4-10.4); Monocytes Absolute Auto 0.4 K/mm3 (0.1-0.6); Monocytes Percent Auto 8.3 % (2.6-8.5); Neutrophils Absolute Auto 3.1 K/mm3 (1.3-6.7); Platelet Count Result 110 k/mm3 (150-375); Red Blood Count 3.98 M/mm3 (4.6-6.20); Red Cell Distribution Width 16.9 % (11.5-14.5); White Blood Count 4.4 K/mm3 (4.5-10.0)
[2023-03-01 09:14] LABS: Anion Gap 9 mmol/L (8-16); Blood Urea Nitrogen 27 mg/dL (9-20); Calcium 8.9 mg/dL (8.4-10.2); Carbon Dioxide 26 mmol/L (22-30); Chloride 100 mmol/L (98-107); Estimated Glomerular Filt Rate > 60; Glucose 296 mg/dL (65-110); Potassium 4.3 mmol/L (3.4-5.0); Sodium 135 mmol/L (137-145)
[2023-03-01] MEDS: SODIUM CHLORIDE 0.9% IV 500 ML 100 ML IV CONT (09:55)
--- NOTE | 2023-03-01 11:57 | WPDHPUPDATE1 ---
History and Physical Update Update Date/Time: 03/01/23 11:57 History and Physical has been reviewed, including an updated exam of the patient. There are NO changes in the patient's condition. Risks, benefits, and alternatives have been discussed and questions answered. Patient agrees to proceed with procedure.
--- NOTE | 2023-03-01 11:58 | WPDMODSED ---
Moderate Sedation Note-Pt Data Patient Data Diagnosis: Coronary artery disease, abnormal stress test Present Complaint: Coronary artery disease, abnormal stress test Procedure to be performed/Plan: Coronary angiography, LHC, +/- PCI Allergies Allergy/AdvReac Type Severity Reaction Status Date / Time amoxicillin Allergy Unknown Loss of Verified 03/01/23 09:02 Consciousness Penicillins Allergy Unknown Other Verified 03/01/23 09:02 Home Medications Medication Instructions Recorded Confirmed Type allopurinol 100 mg tablet 200 mg PO DAILY 09/06/22 03/01/23 History cyanocobalamin (vitamin B-12) 1,000 mcg PO DAILY 09/06/22 03/01/23 History 1,000 mcg tablet dapagliflozin 10 mg tablet 5 mg PO DAILY 09/06/22 02/28/23 History (Farxiga) folic acid 1 mg tablet 1 mg PO DAILY 09/06/22 03/01/23 History gabapentin 300 mg capsule 600 mg PO BID 09/06/22 03/01/23 History metformin 500 mg tablet,extended 1,500 mg PO DAILY 09/06/22 03/01/23 History release 24 hr omeprazole 40 mg capsule,delayed 40 mg PO DAILY 09/06/22 03/01/23 History release rosuvastatin 10 mg tablet 10 mg PO DAILY 09/06/22 03/01/23 History ascorbic acid (vitamin C) 1,000 mg 500 mg PO DAILY 09/10/22 02/28/23 History tablet cholecalciferol (vitamin D3) 25 25 mcg PO DAILY 09/10/22 02/28/23 History mcg (1,000 unit) tablet (Vitamin D3) omega 2-fza-fsh-fish oil 300 2 cap PO BID 09/10/22 03/01/23 History mg-1,000 mg capsule (Fish Oil) apixaban 5 mg tablet (Eliquis) 5 mg PO Q12HR 1 month #60 tabs 09/13/22 02/28/23 Rx furosemide 40 mg tablet 40 mg PO DAILY 01/09/23 02/28/23 History metoprolol tartrate 25 mg tablet 75 mg PO BID 01/09/23 03/01/23 History naproxen sodium 220 mg tablet 220 mg PO BID PRN Pain 01/09/23 03/01/23 History (Aleve) polyethylene glycol 3350 17 gram 17 g PO QAM PRN Constipation 01/09/23 03/01/23 History oral powder packet (Miralax) semaglutide 3 mg tablet (Rybelsus) 14 mg PO DAILY 01/09/23 03/01/23 History testosterone enanthate 75 mg/0.5 75 mg subcut WEEKLY 01/09/23 03/01/23 History mL subcutaneous auto-injector (Xyosted) Current Medications: Active Medications Sodium Chloride (Normal Saline Iv) 500 mls @ 100 mls/hr IV CONT .Q5H LUZ Last Admin: 03/01/23 09:55 Dose: 100 mls/hr Sedation/Anesthesia: No previous sedation/anesthesia problems (including family history). [facility] Past Medical History Medical History Asthma COPD (chronic obstructive pulmonary disease) DVT (deep venous thrombosis) HTN (hypertension) Hyperlipidemia Lymphoma Obesity Osteoarthritis T2DM (type 2 diabetes mellitus) Family History Family History Father Family history of congenital heart disease Sibling Family history of malignant neoplasm of cervix Diabetes mellitus Grandparent Diabetes mellitus Social History Social History Smoking packs per day: 1 Smoking cigarettes per day: 20.0 Years smoked: 30 Smoking pack-years: 30.00 Smoking status: Former smoker Tobacco type: cigarettes and e-cigarettes/vaping Alcohol intake: current Alcohol use details: once a month Substance use: never Substance use type: does not use Lack of Transportation: No Lack of Food: Never True Current Housing: I Have Housing Concerned About Future Housing: No Difficulty Paying Gas/Electric Bills: No Difficulty Paying for Meds: No Currently Unemployed: No Education: High School Diploma/GED Difficulty w/ Childcare or Family Care: No Living arrangements: with family Spiritual care concerns: No Mod Sed Physical Exam Physical Exam Pre Procedural Exam: Normal: Appearance, Heart Size, Heart Rate, Heart Rhythm, Neuro Exam, Abdomen, Extremities and Skin Hours since solid foods: 12 Hours since liquid intake: 8 Mallampati Classification: class III
--- NOTE | 2023-03-01 11:59 | WPDCARDPROC ---
Cardiac Cath Procedure Note Date of procedure:: 03/01/23 Performing physician:: CATHETERIZATION LABORATORY REPORT Procedure Date: 03/01/2023 Assistant Front Desk Manager: Harmony Loredo M.D., [facility]? Referring Physician: Elver Bauer M.D. ? Anesthesia: Versed and Fentanyl were ordered and given in my presence at 11:29, procedure ended at 11:52. Supervision of nurse monitored moderate sedation with Versed and Fentanyl was provided for 23 minutes. Total of Versed 1mg and Fentanyl 25mcg were administered by the Cap Parts Cutter RN Yuli Odell. Pre-op Diagnosis: Coronary artery disease Post-op Diagnosis: 1. Separate ostial of LAD and LCX. 2. Proximal-mid LAD with mild diffuse disease. The LAD is diminutive in the distal portion (almost appears to be occluded). Faint antegrade flow is seen to the apex. No collaterals are seen to the LAD. 3. There is a small caliber branch that comes off the large OM that has significant 90% ostial disease. Recommend medical management for this lesion as no ischemia demonstrated in this territory on MPI, and due to the small caliber size of the branch. 4. Right dominant coronary artery system. 5. Left ventricular end-diastolic pressure of 13mmHg Procedure(s): 1. Moderate sedation 2. Ultrasound-guided access of the right radial artery 3. Coronary angiography 4. Left heart cath Access Site: Right radial artery Brief History and Clinical Indications: Patient is a 72-year-old male who is referred for [facility] for abnormal stress test. All risks, benefits and alternatives to left heart catheterization with or without percutaneous coronary intervention was discussed at length with the patient. Risk of complications including but not limited to bleeding, infection, arrhythmia, stroke, worsening kidney function, blood loss, groin hematoma, limb loss, emergency coronary artery bypass grafting, and even were discussed with the patient and all questions were answered. The patient understood and wished to proceed. Time out called, patient name, date of , medical record number, allergies, procedure performed, identify Assistant Front Desk Manager, patient and staff member concurred with accurate data, procedure carried on. Findings: LEFT HEART CATHETERIZATION FINDINGS: 1. Left main: The LAD and LCX have separate ostia. 2. Left anterior descending: The LAD is heavily calcified in its proximal portion. The LAD is medium caliber in its proximal portion that tapers in size, and is diminutive in the distal portion (almost appears to be occluded). Faint antegrade flow is seen to the apex. No collaterals are seen to the LAD. The proximal-mid LAD has mild diffuse disease. The first diagonal branch is small caliber and diffusely diseased. 3. Left circumflex: The left circumflex is a small-medium caliber vessel with mild diffuse disease. There is a large caliber OM vessel that is heavily calcified in its proximal-mid portion with mild disease in its mid portion. There is a small caliber branch that comes off the OM that has significant 90% ostial disease. Remainder of this branch has mild diffuse disease. 4. Right coronary artery: The RCA has heavy calcifications throughout the vessel. The RCA is the dominant vessel. The RCA has mild diffuse disease without any obstructive disease. 5. Left ventricle: A. End-diastolic pressure 13mmHg. B. LV gram deferred. C. No significant gradient across aortic valve on catheter pullback. Description of Procedure: Informed consent signed and placed in the chart. Patient transferred to laboratory analyst room. Prepped and draped in usual sterile fashion. 2% lidocaine injected subcutaneously in right wrist area. 22-gauge venipuncture catheter used to access the right radial artery with the Seldinger technique. 6-FR slender sheath placed in right radial artery. Nitroglycerine and Verapamil were given intraarterial through the sheath. Versacore wire advanced under fluoroscopy 5F Tig 4 diagnostic catheter enga
== END 2023-03-01 15:11 | disposition home or self-care (01) ==
PROVIDERS: PCP Internal Medicine; Visit Provider Internal Medicine
PROC: 4A023N7 Measurement of Cardiac Sampling and Pressure, Left Heart, Percutaneous Approach (ICD-10-PCS; CPT 93452; principal; 2023-03-01 10:00)
DX: I25.10 Atherosclerotic heart disease of native coronary artery without angina pectoris (principal); I48.91 Unspecified atrial fibrillation; E11.9 Type 2 diabetes mellitus without complications; E78.5 Hyperlipidemia, unspecified; K21.9 Gastro-esophageal reflux disease without esophagitis; M10.9 Gout, unspecified; Z79.01 Long term (current) use of anticoagulants; I50.32 Chronic diastolic (congestive) heart failure
CPT/HCPCS: 36415; 80048; 85025; 93458; A9270; C1769; C1887; C1894; J1644; J2250; J3010; J7040

== ENCOUNTER 2024-05-29 01:17 | Day surgery (SDC) | payer MEDICARE, SELFPAY ==
[2024-05-28 10:21] VITALS: BMI 30.6
[2024-05-29] VITALS (13 sets, daily range): BP systolic 121–156; BP diastolic 64–93; PULSE 66–99; RESP 12–21; TEMP 36.4; O2SAT 96–100; BMI 30.6
--- NOTE | 2024-05-29 09:15 | OP_ITS ---
This report was initially signed by Isidoro Bauer MD on 05/29/24 @ 0945 PAD[facility] TransEsophageal Echocardiogram Date of procedure: 05/29/24 Procedure Type: 1. Multiplanar transesophageal echocardiography with color flow and pulse wave Doppler 2. Moderate sedation Diagnosis: Left atrial appendage thrombus Indications: Left atrial appendage thrombus Image Quality: Good Findings: After discussing the risks benefits and alternatives of procedure patient agreeable via verbal and written informed consent. Risks discussed included esophageal rupture or perforation, bleeding, pain, infection, , adverse reaction anesthesia, sore throat. After establishing continues origination specialist, pulse oxygenation serial blood pressure assessments time-out was taken the procedure started. Procedure start time 9:14 a.m. Procedure stop time 9:30 a.m. Medications were administered patient was monitored by Ting millan RN Total of 2 mg Versed 50 mcg fentanyl given for moderate sedation. Hurricaine spray to the hypopharynx x2 for topical anesthetic also given. Complications: None Blood loss: None Findings: Mild left ventricular enlargement with low normal left ventricular function with ejection fraction of 50-55%. Normal right ventricular size and function. Moderate to severe left atrial enlargement with spontaneous contrast noted throughout. [id number]-[id number] right atrial enlargement. Atrial septum is intact without color flow evidence of shunting. Tricuspid valve is normal with mild tricuspid regurgitation. Mitral valve is normal with mild mitral regurgitation. Aortic valve is actually bicuspid with mild AI. Mild calcification also noted. Pulmonic valve is normal with mild pulmonic insufficiency. Aortic root measures 3.4 cm in diameter. No pericardial effusion. Left atrial appendage is visualized. There is slow flow with velocities of less than 50 centimeters/second. There is some hypermobility seen in left atrial appendage tip and a around the base also. This is consistent with probable thrombus. Conclusions: 1. Moderate sedation 2. Low-normal ejection fraction 50-55% 3. Biatrial enlargement 4. Mild mitral tricuspid aortic and pulmonic insufficiency 5. Bicuspid aortic valve 6. Left atrial appendage thrombus visualized Plan: Will transition him from direct oral anticoagulation to vitamin K antagonism using warfarin. This report may have been done utilizing a voice recognition system. Attempts have been made to correct errors. However, there may be uncorrected grammatical, spelling, and recognition errors present. Report Initialized date/time: Isidoro Bauer MD 05/29/2445 Electronically signed by: Isidoro Bauer MD 05/29/[address]44 [facility]
--- NOTE | 2024-05-29 09:45 | HP_ITS ---
This report was initially signed by Isidoro Bauer MD on 05/29/24 @ 0947 H&P: HPI History of Present Illness Date/Time: 05/29/24 09:45 Chief Complaint: Left atrial appendage thrombus Narrative: 73-year-old who has left atrial appendage thrombus. Here for [facility] for further investigation Review of Systems Review of Systems: All systems reviewed & are unremarkable except as noted in HPI and below Cardiovascular: Cardiovascular: Denies chest pain PMFSH Past Medical History Medical History (Updated 05/29/24 @ 09:46 by Isidoro Bauer MD) Aortic stenosis aortic valve area of 1.7 cm2 Atrial fibrillation Atrial fibrillation BPH associated with nocturia (~08/2019) With both nocturia and incontinence Chronic anticoagulation CKD (chronic kidney disease) stage 4, GFR 15-29 ml/min DU (perforated duodenal ulcer) (~08/2019) Hyperlipemia, mixed Hypertension Intra-abdominal tumor Non-insulin dependent type 2 diabetes mellitus Obstructive sleep apnea Thrombus of left atrial appendage Surgical History Surgical History H/O abdominal surgery excision of 20 centimeter hematoma and portion of Right adrenal gland which was benign. Family History Family History Sibling Cardiovascular disease Father Heart disease Mother Cancer Social History Social History Years smoked: 35 Smoking status: Former smoker Tobacco type: cigarettes and cigars Second hand tobacco smoke exposure: No Smoking end date: 05/08/89 Alcohol intake: never Substance use: never Substance use type: does not use Do You Feel Safe in your Home?: Yes Lack of Transportation: No Lack of Food: Never True Current Housing: I Have Housing Concerned About Future Housing: No Difficulty Paying Gas/Electric Bills: No Difficulty Paying for Meds: No Currently Unemployed: No Education: Grade School Difficulty w/ Childcare or Family Care: No Living arrangements: with family Gender identity (if verbalized by the patient): Male Spiritual care concerns: No Agree to blood products: Yes Meds Home Medications and Allergies Home Medications Medication Instructions Recorded Confirmed Type cyanocobalamin (vitamin B-12) 1,000 mcg PO DAILY 08/08/19 05/22/24 History 1,000 mcg tablet (Vitamin B-12) potassium chloride 10 mEq 10 meq PO DAILY 08/08/19 05/22/24 History tablet,extended release(part/cryst) (Klor-Con M) pravastatin 40 mg tablet 40 mg PO HS 08/08/19 05/22/24 History Centrum Adult 50 Plus See Rx Instructions .Route .COMPLEX 06/07/23 05/22/24 History apixaban 5 mg tablet (Eliquis) 5 mg PO BID 06/07/23 05/22/24 History donepezil 10 mg tablet (Aricept) 10 mg PO HS 06/07/23 05/22/24 History hydralazine 25 mg tablet 50 mg PO BID 06/07/23 05/22/24 History mirabegron 50 mg tablet,extended 50 mg PO DAILY 06/07/23 05/22/24 History release 24 hr (Myrbetriq) pantoprazole 40 mg tablet,delayed 40 mg PO DAILY 06/07/23 05/22/24 History release (Protonix) tamsulosin 0.4 mg capsule (Flomax) 0.8 mg PO QAM 06/07/23 05/22/24 History losartan 100 mg tablet 100 mg PO DAILY 04/08/24 05/22/24 History metolazone 2.5 mg tablet 2.5 mg PO EVERY OTHER DAY 04/08/24 05/22/24 History sitagliptin phosphate 25 mg tablet 25 mg PO DAILY 04/08/24 05/22/24 History (Januvia) torsemide 10 mg tablet 20 mg PO DAILY 04/08/24 05/22/24 History Allergie
== END 2024-05-29 11:37 | disposition home or self-care (01) ==
PROVIDERS: PCP Internal Medicine; Visit Provider Internal Medicine Cardiovascular Disease
PROC: (CPT 93312; principal; 2024-05-29 08:30)
DX: I51.3 Intracardiac thrombosis, not elsewhere classified (principal); I34.0 Nonrheumatic mitral (valve) insufficiency; I12.9 Hypertensive chronic kidney disease with stage 1 through stage 4 chronic kidney disease, or unspecified chronic kidney disease; N18.4 Chronic kidney disease, stage 4 (severe); E78.2 Mixed hyperlipidemia; G47.33 Obstructive sleep apnea (adult) (pediatric); I35.0 Nonrheumatic aortic (valve) stenosis; I48.91 Unspecified atrial fibrillation; N40.0 Benign prostatic hyperplasia without lower urinary tract symptoms; Z79.01 Long term (current) use of anticoagulants; Z98.890 Other specified postprocedural states; Z87.891 Personal history of nicotine dependence; Z80.9 Family history of malignant neoplasm, unspecified; Z82.49 Family history of ischemic heart disease and other diseases of the circulatory system
CPT/HCPCS: 93312; 93320; 93325; A9270; J2250; J3010; J7040